=== PATIENT | male | born 1975 | race Caucasian/White ===

== ENCOUNTER 2021-03-25 21:32 | Inpatient (IN) ==
[~2021-03-25 21:32] MED LIST: HEPARIN SOD (PORCINE) 1000 UNIT/ML IV ONE; TICAGRELOR 90 MG TAB PO ONE
[2021-03-25] MEDS ORDERED: TICAGRELOR 90 MG TAB PO ONE (21:33)
[2021-03-25] MEDS ORDERED: HEPARIN (PORCINE) 1000 UNIT/ML 10 ML (CATH LAB USE ONLY) ONE (21:33)
[2021-03-25] MEDS ORDERED: niCARdipine HCL INJ 2.5 MG/ML 10 ML AMP ONE (21:33)
[2021-03-25] MEDS ORDERED: fentaNYL citrate 100 MCG/2 ML VIAL ONE ×2 (21:33→21:56)
[2021-03-25] MEDS ORDERED: NITROGLYCERIN/D5W 100MCG/ML 20ML SYR ONE (21:34)
[2021-03-25] MEDS ORDERED: MIDAZOLAM HCL 1 MG/ML 2ML VIAL ONE ×2 (21:34→21:56)
[2021-03-25] MEDS ORDERED: NITROGLYCERIN SL 0.4 MG/TAB TAB SL STA (21:40)
[2021-03-25] MEDS ORDERED: NITROGLYCERIN SL 0.4 MG/TAB TAB ONE (21:40)
--- NOTE | 2021-03-25 21:46 | Pre Anesthesia Assessment ---
Date of Service March 25, 2021 Pre Sedation Assessment Cardiovascular RRR, no murmur, no edema Respiratory normal respiratory effort, lungs clear to auscultation Pre-Sedation Airway Assessment Smoking Status: Current every day smoker Hx Sleep Apnea: No Hx Difficult Intubation: No Short, Thick Neck: No Thyromental Distance: < 3.5 Finger Breadths Oral Cavity: + WNL Mallampati Class: III ASA: ASA3 Procedure Planning Contraindications for Sedation: none Current Medications Reviewed: Yes Notes The planned sedation has been discussed with the patient. Informed Consent was obtained. I have identified the patient, determined the appropriateness of sedation and have assessed the patient immediately prior to the procedure. All medicine(s) and interventions are by my order.
[2021-03-25 21:48] LABS: Basophils # (auto) 0.02 K/uL (0-0.2); Basophils % (auto) 0.2 %; Hematocrit (blood only) 34.4 % (42-52); Hemoglobin 10.5 g/dL (14.0-18.0); Immature Granulocytes # (auto) 0.04 K/uL (0.00-0.02); Immature Granulocytes % (auto) 0.3 %; Lymphocytes # (auto) 1.45 K/uL (1.2-3.4); Lymphocytes % (auto) 11.7 %; Mean Corpuscular Hemoglobin 22.8 pg (25-34); Mean Corpuscular Hgb Conc 30.5 g/dL (32-36); Mean Corpuscular Volume 74.8 fL (80-100); Monocytes % (auto) 3.2 %; Neutrophils # (auto) 10.48 K/uL (1.4-6.5); Neutrophils % (auto) 84.6 %; Platelet Count 450 K/uL (130-400); RDW Coefficient of Variation 17.8 % (11.5-14.5); RDW Standard Deviation 48.3 fL (36.4-46.3); White Blood Count 12.39 K/uL (4.8-10.8)
--- NOTE | 2021-03-25 21:49 | Emergency Department Note ---
History of Present Illness General Chief complaint: Heart Alert Stated complaint: Heart Alert History of Present Illness 45-year-old male presents to the ED with a chief complaint of retrosternal chest pain. He describes it as a burning pain or like really bad heartburn. Associated nausea and vomiting. He has had it for the past couple of hours. EMS was called and he was transported here for evaluation. EMS shows ST elevation AL in the anterior lateral leads. EMS provided nitroglycerin, aspirin, fentanyl and Zofran as well as some IV fluids. This helped his symptoms a little. He does report history of smoking a pack per day. No early family history of heart disease. Reports only taking sertraline for depression. He was diaphoretic for EMS. Home Medications Medication Instructions Recorded Confirmed Type albuterol 90 mcg/actuation aerosol 90 mcg INHALATION DAILY 03/25/21 03/25/21 History inhaler multivitamin 2 tab PO DAILY 03/25/21 03/25/21 History sertraline 25 mg tablet 25 mg PO DAILY 03/25/21 03/25/21 History Allergies Allergy/AdvReac Type Severity Reaction Status Date / Time pollen extracts AdvReac Mild Watery Eye Verified 03/25/21 22:53 Past Med/Surg History Social History Smoking Status: Current every day smoker Cigarettes Per Day: 10; Do You Dip or Chew Tobacco: No; Hx Alcohol Use: Yes Alcohol type: beer Hx Substance Use: No Preferred Language: [place] Communication Ability: Effective Sorter Operator Required: No Beliefs That Will Affect Care: None Current Living Situation: Spouse Other Information That Helps Us Care for You: No Feels Safe at Home: Yes Safety Concerns: Feels Safe At This Time Assistive Devices: None Review of Systems A total of 10 systems reviewed and were otherwise negative Physical Exam Vital Signs Vital Signs - 24 hr 03/25/21 21:35 03/25/21 21:44 03/25/21 22:27 Temperature 36.9 C 36.8 C Temperature Source Oral Oral Pulse Rate 92 H Pulse Rate [Apical] 109 H Pulse Rhythm [Apical] Regular Pulse Strength [Apical] Normal Respiratory Rate 18 20 Respiratory Effort / Characteristics Non-Labored Spontaneous Respiratory Depth Normal Respiratory Pattern Regular Blood Pressure 161/116 H Blood Pressure [Left Arm] 123/105 H Blood Pressure Mean 131 Blood Pressure Mean [Left Arm] 111 Blood Pressure Position Lying Blood Pressure Position [Left Arm] Lying Pulse Oximetry 98 95 Oxygen Delivery Method Room Air Room Air Room Air Sepsis Recent Fever Within 48 Hours No Sepsis New/Unexplained Change in Mental Status No Sepsis Action Taken by Nursing No Action Required CONSTITUTIONAL/VITAL SIGNS: Reviewed / noted above. GENERAL: Non-toxic in appearance. INTEGUMENTARY: Warm, dry, and [place]. HEAD: Normocephalic. EYES: without scleral icterus or trauma. ENT/OROPHARYNX: clear and moist. LYMPHADENOPATHY/NECK: Is supple without lymphadenopathy or meningismus. RESPIRATORY: Clear to auscultation bilaterally. No increased work of breathing. CARDIOVASCULAR: Regular rate and rhythm. GI/ABDOMEN: Soft and nontender. No organomegaly or pulsatile mass. EXTREMITIES: Warm and well perfused. BACK: No CVA tenderness. NEUROLOGICAL: Intact without focal deficits. PSYCHIATRIC: normal affect. MUSCULOSKELETAL: Normally developed with good muscle tone. TRIAGE NURSING DOCUMENTATION REVIEWED. Course Administered Medications Discontinued Medications Fentanyl Citrate (Fentanyl Citrate 100 Mcg/2 Ml Vial) Confirm Administered Dose 100 mcg .ROUTE .[facility] ONE Stop: 03/25/21 21:34 Last Admin: 03/25/21 22:10 Dose: 100 mcg Documented by: [id number] Fentanyl Citrate (Fentanyl Citrate 100 Mcg/2 Ml Vial) Confirm Administered Dose 100 mcg .ROUTE .[facility] ONE Stop: 03/25/21 21:57 Last Admin: 03/25/21 22:11 Dose: 50 mcg Documented by: [id number] Heparin Sodium (Porcine) (Heparin Sod (Porcine) 1000 Unit/Ml) 5,000 units IV NOW ONE Stop: 03/25/21 21:31 Last Admin: 03/25/21 22:10 Dose: 5,000 units Documented by: [id number] Cosigned by: [id number] Heparin Sodium (Porcine) (Heparin (Porcine) 1000 Unit/Ml 10 Ml (Needle Grader Use Only)) Confirm Administered Dose 10,000 units .ROUTE .[facility] ONE Stop: 03/25/21 21:34 Last Admin: 03/25/21 22:10 Dose: 5,000 units Documented by: [id number] Heparin Sodium/Sodium Chloride (Heparin In Nss Infusion 1000 Unit/500 Ml (2 U/Ml) Bag) Confirm Administered Dose 3,000 units IV .[facility] ONE Stop: 03/25/21 21:35 Last Admin: 03/25/21 22:11 Dose: 3,000 units Documented by: [id number] Midazolam HCl (Midazolam Hcl 1 Mg/Ml 2ml Vial) Confirm Administered Dose 2 mg .ROUTE .[facility] ONE Stop: 03/25/21 21:35 Last Admin: 03/25/21 22:11 Dose: 2 mg Documented by: [id number] Midazolam HCl (Midazolam Hcl 1 Mg/Ml 2ml Vial) Confirm Administered Dose 2 mg .ROUTE .[facility] ONE Stop: 03/25/21 21:57 Last Admin: 03/25/21 22:12 Dose: 2 mg Documented by: [id number] Nicardipine HCl (Nicardipine Hcl Inj 2.5 Mg/Ml 10 Ml Amp) Confirm Administered Dose 25 mg .ROUTE .[facility]-MED ONE Stop: 03/25/21 21:34 Last Admin: 03/25/21 22:11 Dose: 25 mg Documented by: [id number] Nitroglycerin (Nitroglycerin Sl 0.4 Mg/Tab Tab) 0.4 mg SL NOW STA Stop: 03/25/21 21:41 Last Admin: 03/25/21 21:43 Dose: 0.4 mg Documented by: [id number] Nitroglycerin (Nitroglycerin Sl 0.4 Mg/Tab Tab) Confirm Administered Dose 0.4 mg .ROUTE .[facility] ONE Stop: 03/25/21 21:41 Last Admin: 03/25/21 22:13 Dose: 0.4 mg Documented by: [id number] Nitroglycerin/Dextrose (Nitroglycerin/D5w 100mcg/Ml 20ml Syr) Confirm Admini stered Dose 2,000 mcg .ROUTE .[facility]-MED ONE Stop: 03/25/21 21:35 Last Admin: 03/25/21 22:11 Dose: 2,000 mcg Documented by: [id number] Ticagrelor (Ticagrelor 90 Mg Tab) 180 mg PO ONE ONE Stop: 03/25/21 21:31 Last Admin: 03/25/21 22:10 Dose: 180 mg Documented by: [id number] Ticagrelor (Ticagrelor 90 Mg Tab) Confirm Administered Dose 180 mg PO .STK-MED ONE Stop: 03/25/21 21:34 Last Admin: 03/25/21 22:11 Dose: Not Given Documented by: [id number] Critical Care Time I have personally spent 30 minutes of critical care time in the direct management of this patient. This includes bedside care, interpretation of diagnostic studies, and testing, discussion with consultants, patient, and family members, and other required patient management activities. This 30 minutes is in excess of all separately billable procedures. Medical Decision Making Differential Diagnosis Medical decision chest Medical Records Attestation: I reviewed the patient's medical records. Home Medications Current Medication List: was personally reviewed by me Laboratory Data Attestation: I reviewed the patient's lab results. Result diagrams: 03/25/21 21:40 03/25/21 21:40 Lab Results 03/25/21 03/25/21 03/25/21 Range/Units 21:40 21:40 21:40 WBC 12.39 H (4.8-10.8) K/uL RBC 4.60 L (4.7-6.1) M/uL Hgb 10.5 L (14.0-18.0) g/dL Hct 34.4 L (42-52) % MCV 74.8 L (80-100) fL MCH 22.8 L (25-34) pg MCHC 30.5 L (32-36) g/dL RDW Std Deviation 48.3 H (36.4-46.3) fL RDW Coeff of Jesus 17.8 H (11.5-14.5) % Plt Count 450 H (130-400) K/uL MPV 9.0 (7.4-10.4) fL Immature Gran % (Auto) 0.3 % Neut % (Auto) 84.6 % Lymph % (Auto) 11.7 % Miner % (Auto) 3.2 % Eos % (Auto) 0.0 % Baso % (Auto) 0.2 % Neut # (Auto) 10.48 H (1.4-6.5) K/uL Lymph # (Auto) 1.45 (1.2-3.4) K/uL Miner # (Auto) 0.40 (0.11-0.59) K/uL Eos # (Auto) 0.00 (0-0.5) K/uL Baso # (Auto) 0.02 (0-0.2) K/uL Immature Gran # (Auto) 0.04 H (0.00-0.02) K/uL Hypochromasia Present PT Cancelled INR Cancelled APTT Cancelled PTT Ratio Cancelled Activ Coag Time Kaolin (94-140) SECONDS Sodium 138 (136-145) mmol/L Potassium 4.1 (3.5-5.1) mmol/L Chloride 106 (98-107) mmol/L Carbon Dioxide 21 (21-32) mmol/L Anion Gap 10.0 (3-11) BUN 18 (7-18) mg/dl Creatinine 1.22 (0.6-1.4) mg/dl Est Cr Clr Drug Dosing 90.6 ml/min Est GFR ( Amer) 83.1 ml/min Est GFR (Non-Af Amer) 71.7 ml/min BUN/Creatinine Ratio 14.5 (10-20) Glucose 179 H (70-99) mg/dl Calcium 8.9 (8.5-10.1) mg/dl Total Bilirubin 0.3 (0.2-1) mg/dl AST 12 L (15-37) U/L ALT 20 (12-78) U/L Alkaline Phosphatase 84 (45-117) U/L Troponin I 0.072 H* (0-0.045) ng/ml Total Protein 7.5 (6.4-8.2) gm/dl Albumin 3.7 (3.4-5.0) gm/dl Globulin 3.8 (2.5-4.0) gm/dl Albumin/Globulin Ratio 1.0 (0.9-2) Lipase 169 (73-393) U/L COVID-19 Eval Order SARS-CoV-2 (PCR) (Negative) 03/25/21 03/25/21 03/25/21 Range/Units 21:42 21:42 22:09 WBC (4.8-10.8) K/uL RBC (4.7-6.1) M/uL Hgb (14.0-18.0) g/dL Hct (42-52) % MCV (80-100) fL MCH (25-34) pg MCHC (32-36) g/dL RDW Std Deviation (36.4-46.3) fL RDW Coeff of Jesus (11.5-14.5) % Plt Count (130-400) K/uL MPV (7.4-10.4) fL Immature Gran % (Auto) % Neut % (Auto) % Lymph % (Auto) % Miner % (Auto) % Eos % (Auto) % Baso % (Auto) % Neut # (Auto) (1.4-6.5) K/uL Lymph # (Auto) (1.2-3.4) K/uL Miner # (Auto) (0.11-0.59) K/uL Eos # (Auto) (0-0.5) K/uL Baso # (Auto) (0-0.2) K/uL Immature Gran # (Auto) (0.00-0.02) K/uL Hypochromasia PT INR APTT PTT Ratio Activ Coag Time Kaolin 224 H (94-140) SECONDS Sodium (136-145) mmol/L Potassium (3.5-5.1) mmol/L Chloride (98-107) mmol/L Carbon Dioxide (21-32) mmol/L Anion Gap (3-11) BUN (7-18) mg/dl Creatinine (0.6-1.4) mg/dl Est Cr Clr Drug Dosing ml/min Est GFR ( Amer) ml/min Est GFR (Non-Af Amer) ml/min BUN/Creatinine Ratio (10-20) Glucose (70-99) mg/dl Calcium (8.5-10.1) mg/dl Total Bilirubin (0.2-1) mg/dl AST (15-37) U/L ALT (12-78) U/L Alkaline Phosphatase (45-117) U/L Troponin I (0-0.045) ng/ml Total Protein (6.4-8.2) gm/dl Albumin (3.4-5.0) gm/dl Globulin (2.5-4.0) gm/dl Albumin/Globulin Ratio (0.9-2) Lipase (73-393) U/L COVID-19 Eval Order Covid19 at [facility] SARS-CoV-2 (PCR) NEGATIVE (Negative) ECG Data Attestation: I personally reviewed and interpreted this ECG as follows: Additional Comments: Twelve-lead EKG: Per my interpretation there is a sinus rhythm with a normal rate. ST elevations are noted in the anterolateral leads. This is consistent with acute AL. No PVCs. Normal QTC. MDM Narrative Patient presents with 2 hours of chest pain that he describes as a burning heartburn-like sensation associated with nausea and vomiting. EKG shows acute anterolateral wall AL. Heart alert was called prior to the patient arriving to the emergency department. EMS provided aspirin p.o., nitroglycerin sublingual, IV fentanyl and IV Zofran as well as some IV fluids. He was given IV heparin 5000 units as well as p.o. Brilinta 180 mg here as well as an additional sublingual nitro. He was taken to the cardiac Needle Grader by Dr. Medellin for intervention. Impression & Plan Acute anterolateral wall AL Discharge Plan Visit Data Chief Complaint: Heart Alert Stated Complaint: Heart Alert ED Provider: [facility] Discharge Problem: Acute anterolateral wall AL Patient Disposition: Admitted As Inpatient Discharge Instructions Interventions: ED Discharge Assessment Last Done: 03/25/21 21:44
--- NOTE | 2021-03-25 21:50 | Cardiology Consultation ---
Date of Consultation March 25, 2021 Assessment & Plan (1) Acute anterolateral wall TN: Presentation consistent with anterior STEMI and recommend proceeding with emergent cardiac catheterization and likely primary PCI. No apparent contraindications to procedure. Discussed risks, benefits, alternatives of procedure with patient and they are willing to proceed. Given IV heparin and ticagrelor 180 mg in the ED. Further recommendations pending findings of coronary angiography. History of Present Illness History of Present Illness 45-year-old man here with acute chest pain and ECG concerning for acute TN. Pat ient seen emergently in the ED after heart alert activated by EMS en route. No prior cardiac history. Cardiac risk factors include ongoing tobacco use. Other medical issues include PTSD/anxiety. Chest pain began approximately 2 hours prior to arrival. Describes substernal pain with associated nausea, diaphoresis. Denies similar symptoms in the past. Given nitroglycerin, aspirin, fentanyl in route. Chest pain at time of arrival 03/12. Hemodynamically stable. EKG showed anterior ST elevations. 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 . Ongoing tobacco Patient History Social History Smoking Status: Current every day smoker Feels Safe at Home: Yes Review of Systems Review of Systems: Not obtained in setting of emergent situation Physical Exam Physical Exam: General: Uncomfortable, shaking HEENT: Sclerae anicteric Lungs: Clear to auscultation bilaterally Cardiac: Tachycardic, regular Vascular: 2+ radial Abdomen: Soft, nontender Extremities: Well perfused, no peripheral edema Neuro: Nonfocal Psych: Alert orient x3, normal affect and mood PG Care Time/CCT Total # of Minutes Spent Total Time Spent with Patient: Total time spent is greater than 50% in coordination of care (as documented) at patient's floor/unit and/or counseling patient: Coding Level of Care Code 23155 Inpt Consult Level 5 Diagnoses Acute anterolateral wall TN I21.09
[2021-03-25 22:13] LABS: Albumin Level 3.7 gm/dl (3.4-5.0); BUN Creatinine Ratio 14.5 (10-20); Calcium 8.9 mg/dl (8.5-10.1); Creatinine Clr Calc Pharmacy 90.6 ml/min; Est GFR (African American) 83.1 ml/min; Est GFR (Non-African American) 71.7 ml/min; Potassium 4.1 mmol/L (3.5-5.1)
[2021-03-25 22:20] LABS: Hypochromasia Present
[2021-03-25 22:27] LABS: Bilirubin,Total 0.3 mg/dl (0.2-1); Globulin 3.8 gm/dl (2.5-4.0); Total Protein 7.5 gm/dl (6.4-8.2); Troponin I 0.072 ng/ml (0-0.045)
[2021-03-25] MEDS ORDERED: ACETAMINOPHEN 325 MG TAB PO PRN (22:27)
[2021-03-25] MEDS ORDERED: ONDANSETRON INJ 2 MG/ML 2 ML VIAL IV PRN (22:27)
[2021-03-25] MEDS ORDERED: SODIUM CHLORIDE 0.9% 500 ML IV SCH (22:30)
[2021-03-25] MEDS ORDERED: ICU PROTOCOL FOR HYPERGLYCEMIA PRN (22:32)
--- NOTE | 2021-03-25 22:40 | Post Anesthesia Assessment ---
Date of Service March 25, 2021 Post Sedation Assessment Vital Signs Temp Pulse Resp BP Pulse Ox 03/25/21 21:35 98.4 F 92 H 18 161/116 H 98 Recovery Score Activity: Moves 4 extremities Respiration: Deep Breath/Cough Circulation: +/-20% PreAnes Value Consciousness: Fully Awake Oxygen Saturation: O2 needed for >90% Discharge Sedation Level of Care: Fast Track Phase II Post Sedation Plan On clinical assessment, the patient appears to have tolerated the sedation without complications. Patient is recovering as anticipated. Patient will continue to be monitored by nursing and may be discharged when sedation discharge criteria are met per below protocol. Upon Completions of procedure up to 15 minutes continue every 5 minute vital signs and the P.A.R. score; then discharge to a Phase I or Fast Track to Phase II per the following guidelines: * Discharge Patient to appropriate Phase II area if PAR is 8 or greater or return to pre- procedure baseline. The post - procedure orders will be as directed. * If PAR score is less than 8 or not return to pre-procedure baseline then patient will follow Phase I monitoring till PAR is reached for Phase II. The Phase I may be done in procedure room or may call to secure a Phase I area. * If naloxone or flumazenil are used for reversal, hold in Phase I for continued monitoring from when last reversal dose was given for a minimum of 60 minutes or longer pending the nurse and/or physician discretion of patient condition before discharge to Phase II. Please call the Sedation Physician to re-evaluate and complete post-note for discharge to Phase II area. Do NOT discharge from procedure sedation or Phase 1 until post- sedation evaluation note is complete by procedure /sedation MD Sedation Discharge Instructions to be given to the patient at discharge to home.
--- NOTE | 2021-03-25 22:48 | Cardiac Catheterization ---
[facility] Data: Outer Diameter Technician Cardiac Status Clinical evaluation leading to the procedure CAD Presenation: STEMI Anginal Classification: CCS IV Heart Failure: No Cardiogenic Shock within 24 Hours: No Cardiac Arrest within 24 Hours: No Imaging Studies Past 6 Months: No Stress Studies Past 6 Months: No Diagnostic Physicians Name: Monster Medellin MD Status: Emergency Closure Device Percutaneous Entry Location: Radial Closure Device: Radial Band Recommendations: PCI without planned CABG PCI Indication: Immediate PCI for STEMI Lesion Segment Name: Mid LAD Culprit Artery: Yes Stenosis Prior to Rx (%): 100 Chronic Total Occlusion: No FFR: No Pre-Procedure AVERY Flow: 0 Previously Treated Lesion: No Lesion Complexity: Non-High/Non-C Lesion Length (mm): 15 Thrombus Present: Yes Bifurcation Lesion: No Guidewire Across Lesion: Stenosis Post-Procedure (%): 0 Post-Procedure AVERY Flow: 3 Devices(s) Deployed: Yes Yes Intraprocedure Events Significant Disection: No Perforation: No Cardiac Cath Procedure Full Procedure Date March 25, 2021 Pre-Procedure Diagnosis Pre-Procedure Diagnosis: STEMI AUC Score AUC Score: 9 Post-Procedure Diagnosis Post-Procedure Diagnosis: Severe CAD, Successful PCI and Elevated Intracardiac Pressures Procedure(s) Performed Procedure(s) Performed: Coronary Angiography, Left Heart Cath and Drug Eluting Stent Storage Engineer Monster Medellin MD Respiratory Therapy Technician(s) [place] Estimated Blood Loss Estimated Blood Loss: 10 Medication(s) Medication(s): Fentanyl, Heparin, Lidocaine 1%, Nicardipine, Nitroglycerin and Versed Medication(s): Ticagrelor Summary of Findings Indication: STEMI/Heart Alert Access: 6 Fr right radial artery Catheters: EBU 3.5 guide, JR4 Findings: LM -normal caliber, angiographically normal LAD -medium caliber, proximal luminal irregularities, 100% acute occlusion after takeoff of first diagonal/first septal. Circumflex -medium caliber, no significant disease RCA -dominant, large caliber, no significant disease LVEDP -20 -- PCI -- Antithrombotic therapy: Heparin, ticagrelor Procedure: Left main cannulated with EBU 3.5 guide BMW wire passed across lesion into distal vessel Mid LAD lesion predilated with 2.5 compliant balloon Dilated lesion stented with 3.0 x 18 mm Xience drug-eluting stent Stent post-dilated with 3.5 noncompliant balloon IC vasodilators administered for spasm Post procedure AVERY 3 flow, stent well expanded with minimal residual stenosis and no apparent cardiac complications. Arterial Closure: TR band Summary: 1. Anterior STEMI/acute 100% mid LAD occlusion 2. No significant nonculprit coronary artery disease 3. Mildly elevated intracardiac filling pressure 4. Successful PCI of mid LAD occlusion with single drug-eluting stent (3.0 x 18 mm Xience; postdilated with 3.5 NC). Recommendations: Admit to ICU for continued monitoring Loaded with ticagrelor 180 mg Continue dual-antiplatelet therapy for at least 1 year. Trend troponins until peak, Check Echo Uptitrate beta-larisa/VIRY as BP allows High-dose statin Consult cardiac Rehab Hemodynamics Rest Ao:: 122/86/107 Final Ao: 123/85/114 LV: 130/20 Recommendations Recommendations: PCI without planned CABG Specimens Specimens: None Radiation Exposure (mGy) 1185 Contrast (mls) 75 Fluids (cc crystalloids) Fluids (cc crystalloids): 60 Drains Drains: None Anesthesia Moderate [id number] Procedural Complication(s) None Disposition ICU I attest to the content of the Intraoperative Record and any orders documented therein. Any exceptions are noted below. [facility] Card Cath Procedure Codes Cardiac Catheterization Procedure 1: Cardiovascular Cath Procedures: 31723 Coronaries and LHC (+/-LV) Moderate Sedation Procedure 1: Sedation/Anesthesia: 78520 Mod Sedation by the same physician;Init15 Min Child Age 5 & Up Stenting Procedure 1: Cardiovascular Stent Procedures: 09031 Perc transluminal revascularization of acute sub/total occl, aMI PG Care Time/CCT Total # of Minutes Spent Total Time Spent with Patient: Total time spent is greater than 50% in coordination of care (as documented) at patient's floor/unit and/or counseling patient:
--- NOTE | 2021-03-25 23:14 | Critical Care Consultation ---
Date of Consultation March 25, 2021 Assessment & Plan (1) Admitted to intensive care unit: Reason Critically Ill: 45-year-old male with acute anterior ST CHANTEL he was status post PTCI with SUZE x1 to the LAD requiring close hemodynamic monitoring status post coronary intervention. NEURO - * CAM ICU: NEGATIVE * Depression: * Continue home sertraline CARDIAC/VASCULAR - * Acute anterior STEMI s/p PTCI w/ SUZE x1 to the mid LAD: * AM Echo * Trend Troponin * ASCVD Rx per typical * Continue per cariology recommendations. * Monitor on telemetry. RESPIRATORY - * Encourage smoking cessation GI/NUTRITION - * AHA diet RENAL/LYTES - * No significant electrolyte derangements. - * No concerns at this time. ENDO - * No h/o DM or Thyroid Dz * BSGs per unit protocol. ISS --> gtt per unit policy. HEME - * Stable H&H * Monitor for s/s bleeding s/p Heparin/Brilinta. ID - * No concerns for infection LINES/IV ACCESS - * PIVs x2 DVT PROPHYLAXIS - * Hold s/p Heparin/Brilinta. Hopeful for early ambulation. * SCDs Thank you for allowing us to participate in the care of this patient. Please refer to my attending physician's documentation for any further recommendations. (2) Acute anterolateral wall SD: (3) S/P PTCA (percutaneous transluminal coronary angioplasty): (4) S/P drug eluting coronary stent placement: History of Present Illness Attending Physician: Amanda Akins DO History of Present Illness Patient is a 45-year-old man with a past medical history of depression alone who presented to the emergency department as a code heart alert after an abrupt onset of chest pain watching TV. He reports that he initially felt the sensation of pain to the RIGHT trapezius muscle which she reports he has been having injections placed recently for a work-related injury. He then had an abrupt onset of nausea and vomiting followed by intense heartburn type sensation which she reports was more intense than he never experienced in the past. He rated his pain a 10 out of 10 at that point. He contacted EMS given his intense discomfort. The patient was noted to have anterior ST segment elevations. The patient received nitroglycerin x2, fentanyl, and full dose aspirin prior to arrival. Patient was taken to the catheterization suite where he underwent PTCI with successful SUZE placement to the mid LAD which was 100% occluded. Patient reports being completely pain-free after intervention. Upon evaluation in the ICU, the patient is awake, alert, and oriented. He denies any pain at this time rating his discomfort is 0/10. Patient reports no family history of coronary artery disease, or particularly coronary artery disease in young individuals. The patient with smoking approximately 1 pack of cigarettes per day. He denies any previous history of intermittent chest pain. Patient denies any current complaints of headaches, dizziness, lightheadedness, blurred vision, double vision, chest pain, palpitations, pleuritic pain, nausea, vomiting, or abdominal discomfort. Allergies Allergy/AdvReac Type Severity Reaction Status Date / Time pollen extracts AdvReac Mild Watery Eye Verified 03/25/21 22:53 Home Medications Medication Instructions Recorded Confirmed Type albuterol 90 mcg/actuation aerosol 90 mcg INHALATION DAILY 03/25/21 03/25/21 History inhaler multivitamin 2 tab PO DAILY 03/25/21 03/25/21 History sertraline 25 mg tablet 25 mg PO DAILY 03/25/21 03/25/21 History Patient History Medical History Depression Social History Smoking Status: Current every day smoker Cigarettes Per Day: 10; Do You Dip or Chew Tobacco: No; Hx Alcohol Use: Yes Alcohol type: beer Hx Substance Use: No Preferred Language: Georgian Communication Ability: Effective [place] Required: No Beliefs That Will Affect Care: None Current Living Situation: Spouse Other Information That Helps Us Care for You: No Feels Safe at Home: Yes Safety Concerns: Feels Safe At This Time Assistive Devices: None Review of Systems Review of Systems: A complete 10 point review of systems was reviewed with the patient with pertinent positives and negatives as per history of present illness. All else were negative. Physical Exam Physical Exam: VITAL SIGNS - Vital signs and nursing notes were reviewed. GENERAL - 45-year-old male appearing his stated age who is in no acute distress. Communicates well with provider and answers questions appropriately. HEAD - NC/AT. EYES - PERRL with EOMI bilaterally. Sclera anicteric. EARS - No deformities of external structures noted on gross examination bilaterally. NOSE - Midline and without cyanosis. No epistaxis or purulent drainage noted. MOUTH/OROPHARYNX - Without perioral cyanosis. Buccal mucosa pink and moist and without leukoplakia. NECK - Neck with FROM. LUNGS - Chest wall symmetric without accessory muscle use, intercostals retractions, or central cyanosis. Normal vesicular breath sounds CTA B/L. No wheezes, rales, or rhonchi appreciated. CARDIAC - RRR with S1/S2. No murmur, rubs, or gallops appreciated. No reproducible tenderness to palpation appreciated over the anterior chest wall. ABDOMEN - Abdominal contour flat without pulsations or visible masses. BS normoactive all four quadrants. No tenderness, palpable masses, hepatosplenomegaly, or ascites noted. EXTREMITIES - No clubbing or peripheral cyanosis. No pretibial edema present. +3/5 radial and dorsalis pedis pulses palpated throughout. +5/5 strength noted in UE/LE bilaterally. NEUROLOGIC - Cranial nerves II through XII grossly intact. Sensory intact to light touch throughout. PSYCH - A&Ox3 and cooperates fully with examiner. Pt is very pleasant and interacts well with examiner. Results & Data Results & Data ([facility]) Vital Signs (Past 12 Hours) Vital Signs Temp Pulse Pulse Resp BP BP Pulse Ox 03/25/21 22:57 106 H 18 131/87 97 03/25/21 22:42 96 H 22 121/82 95 03/25/21 22:37 36.4 C L 111 H 18 123/105 H 96 03/25/21 22:27 36.8 C 109 H 20 123/105 H 95 03/25/21 21:35 36.9 C 92 H 18 161/116 H 98 Coding Level of Care Code 93752 Office/OBS Consult Lvl 4 Diagnoses Admitted to intensive care unit Z78.9 Acute anterolateral wall SD I21.09 S/P PTCA (percutaneous transluminal coronary angioplasty) Z98.61 S/P drug eluting coronary stent placement Z95.5 Time Spent (min) 35
--- NOTE | 2021-03-25 23:20 | History & Physical Report ---
Date of Service March 25, 2021 Assessment & Plan (1) Acute anterolateral wall NC: Plan: 45yo male presenting with acute chest pain found to have 100% occlusion of LAD s/p SUZE x 1. 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 He is presently doing well. No complaints. Chest pain has resolved. Risk factors include - tobacco use. -Admit to MICU post-catheterization -Check lipid panel and HgbAIC for risk stratification -Smoking cessation counseling -Continue DAPT with ASA and Brillinta -Metoprolol 25mg po BID - titrate as tolerated -Lisinopril 5mg po qAM - titrate as tolerated -Atorvastatin 80mg po qAM -Trend troponin q 8 hours x 3 sets -Check 2D echo in AM (2) Depression: Plan: Chronic -Continue Sertraline Plan: F/E/N - Heplock. Electrolytes WNL. Heart healthy diet as tolerated Ppx - DAPT Code - Full per discussion with patient Dispo - Admit to MICU Admission and Anticipated Discharge Date Admission Date: March 25, 2021 History of Present Illness Chief Complaint: Chest pain Primary Care Provider: NO PCP Iker Champion is a pleasant 45yo male presenting with anterior STEMI. Patient was at home this evening in his usual state of health. He was watching television when he developed right sided chest pain at 19:45 as well as heart burn, nausea with one episode of non-bloody/non-bilious vomiting and diaphoresis. Pain was severe, 8/10. No history of prior. EMS was called and Code Heart was activated. Patient was given ASA 324mg, Nitro SL x 3, NSS x 550mL, Fentanyl 100mcg and Zofran 4mg en route. Patient hemodynamically stable on arrival. EKG with ST elevations present in anterior leads. Patient was taken to the boat laborer upon arrival and found to have 100% occlusion of LAD. He had one SUZE placed. He received Heparin and Brillinta during the procedure. No complications. Patient tolerated procedure well. Presently with no complaints. He denies chest pain, palpitations, SOB, nausea. No additional complaints at this time. Patient resting comfortably. Allergies Allergy/AdvReac Type Severity Reaction Status Date / Time pollen extracts AdvReac Mild Watery Eye Verified 03/25/21 22:53 Home Medications Medication Instructions Recorded Confirmed Type albuterol 90 mcg/actuation aerosol 90 mcg INHALATION DAILY 03/25/21 03/25/21 History inhaler multivitamin 2 tab PO DAILY 03/25/21 03/25/21 History sertraline 25 mg tablet 25 mg PO DAILY 03/25/21 03/25/21 History Past Med/Surg History Medical History (Updated 03/26/21 @ 01:49 by Amanda Akins DO) Depression Social History Smoking Status: Current every day smoker Cigarettes Per Day: 10; Do You Dip or Chew Tobacco: No; Hx Alcohol Use: Yes Alcohol type: beer Hx Substance Use: No Preferred Language: Swedish Communication Ability: Effective Cna Pct Required: No Beliefs That Will Affect Care: None Current Living Situation: Spouse Other Information That Helps Us Care for You: No Feels Safe at Home: Yes Safety Concerns: Feels Safe At This Time Assistive Devices: None Review of Systems Review of Systems: All systems reviewed & are unremarkable except as noted in HPI & below Physical Exam Physical Exam: General: patient resting comfortably, NAD, non-toxic in appearance, AA&O x 4 Skin: warm, dry, intact, no rashes or lesions HEENT: NC/AT, PERRL, EOMI, anicteric sclera, conjunctiva without injection, external ear normal to inspection and nontender, nares patent, moist mucus membranes, dentition intact, no oropharyngeal lesions, neck supple, trachea midline, no LAD, no thyromegaly, no JVD Heart: +S1/S2, regular, no m/r/g Lungs: equal air entry bilaterally, no rales/rhonchi/wheezes Abd: +BS, soft, NT/ND, no masses/organomegaly/ascites Ext: warm, 2+ pulses in UE/LE bilaterally, no clubbing/cyanosis or edema, r adial occlusion band present right wrist Neuro: nonfocal, patient AA&O x 4, speech intact, no facial droop, moving all extremities on command with equal strength 5/5 Results & Data Results & Data ([facility]) Vital Signs (Past 12 Hours) Vital Signs Temp Pulse Pulse Resp BP BP Pulse Ox 03/25/21 23:12 109 H 14 120/87 03/25/21 22:57 106 H 18 131/87 97 03/25/21 22:42 96 H 22 121/82 95 03/25/21 22:37 36.4 C L 111 H 18 123/105 H 96 03/25/21 22:27 36.8 C 109 H 20 123/105 H 95 03/25/21 21:35 36.9 C 92 H 18 161/116 H 98 Laboratory Results Laboratory Results WBC 12.39 K/uL (4.8-10.8) H 03/25/21 21:40 RBC 4.60 M/uL (4.7-6.1) L 03/25/21 21:40 Hgb 10.5 g/dL (14.0-18.0) L 03/25/21 21:40 Hct 34.4 % (42-52) L 03/25/21 21:40 MCV 74.8 fL (80-100) L 03/25/21 21:40 MCH 22.8 pg (25-34) L 03/25/21 21:40 MCHC 30.5 g/dL (32-36) L 03/25/21 21:40 RDW Std Deviation 48.3 fL (36.4-46.3) H 03/25/21 21:40 RDW Coeff of Jesus 17.8 % (11.5-14.5) H 03/25/21 21:40 Plt Count 450 K/uL (130-400) H 03/25/21 21:40 MPV 9.0 fL (7.4-10.4) 03/25/21 21:40 Immature Gran % (Auto) 0.3 % 03/25/21 21:40 Neut % (Auto) 84.6 % 03/25/21 21:40 Lymph % (Auto) 11.7 % 03/25/21 21:40 [place] % (Auto) 3.2 % 03/25/21 21:40 Eos % (Auto) 0.0 % 03/25/21 21:40 Baso % (Auto) 0.2 % 03/25/21 21:40 Neut # (Auto) 10.48 K/uL (1.4-6.5) H 03/25/21 21:40 Lymph # (Auto) 1.45 K/uL (1.2-3.4) 03/25/21 21:40 [place] # (Auto) 0.40 K/uL (0.11-0.59) 03/25/21 21:40 Eos # (Auto) 0.00 K/uL (0-0.5) 03/25/21 21:40 Baso # (Auto) 0.02 K/uL (0-0.2) 03/25/21 21:40 Immature Gran # (Auto) 0.04 K/uL (0.00-0.02) H 03/25/21 21:40 Hypochromasia Present 03/25/21 21:40 PT Cancelled 03/25/21 21:40 INR Cancelled 03/25/21 21:40 APTT Cancelled 03/25/21 21:40 PTT Ratio Cancelled 03/25/21 21:40 Activ Coag Time Kaolin 224 SECONDS (94-140) H 03/25/21 22:09 Sodium 138 mmol/L (136-145) 03/25/21 21:40 Potassium 4.1 mmol/L (3.5-5.1) 03/25/21 21:40 Chloride 106 mmol/L (98-107) 03/25/21 21:40 Carbon Dioxide 21 mmol/L (21-32) 03/25/21 21:40 Anion Gap 10.0 (3-11) 03/25/21 21:40 BUN 18 mg/dl (7-18) 03/25/21 21:40 Creatinine 1.22 mg/dl (0.6-1.4) 03/25/21 21:40 Est Cr Clr Drug Dosing 90.6 ml/min 03/25/21 21:40 Est GFR ( Amer) 83.1 ml/min 03/25/21 21:40 Est GFR (Non-Af Amer) 71.7 ml/min 03/25/21 21:40 BUN/Creatinine Ratio 14.5 (10-20) 03/25/21 21:40 Glucose 179 mg/dl (70-99) H 03/25/21 21:40 Calcium 8.9 mg/dl (8.5-10.1) 03/25/21 21:40 Total Bilirubin 0.3 mg/dl (0.2-1) 03/25/21 21:40 AST 12 U/L (15-37) L 03/25/21 21:40 ALT 20 U/L (12-78) 03/25/21 21:40 Alkaline Phosphatase 84 U/L (45-117) 03/25/21 21:40 Troponin I 0.072 ng/ml (0-0.045) H* 03/25/21 21:40 Total Protein 7.5 gm/dl (6.4-8.2) 03/25/21 21:40 Albumin 3.7 gm/dl (3.4-5.0) 03/25/21 21:40 Globulin 3.8 gm/dl (2.5-4.0) 03/25/21 21:40 Albumin/Globulin Ratio 1.0 (0.9-2) 03/25/21 21:40 Lipase 169 U/L (73-393) 03/25/21 21:40 Nasal Screen MRSA (PCR) Negative (Negative) 03/25/21 23:34 COVID-19 Eval Order Covid19 at [facility] 03/25/21 21:42 SARS-CoV-2 (PCR) NEGATIVE (Negative) 03/25/21 21:42 Code Status & VTE Plan VTE Prophylaxis Plan VTE Prophylaxis will be ordered: Yes Critical Care Time 35 PG Care Time/CCT Total # of Minutes Spent Total Time Spent with Patient: Total time spent is greater than 50% in coordination of care (as documented) at patient's floor/unit and/or counseling patient: Coding Level of Care Code None Diagnoses Acute anterolateral wall NC I21.09 Depression F32.9
[2021-03-26 05:08] LABS: Basophils # (auto) 0.01 K/uL (0-0.2); Basophils % (auto) 0.1 %; Hematocrit (blood only) 35.8 % (42-52); Hemoglobin 10.9 g/dL (14.0-18.0); Immature Granulocytes # (auto) 0.03 K/uL (0.00-0.02); Immature Granulocytes % (auto) 0.2 %; Lymphocytes # (auto) 1.21 K/uL (1.2-3.4); Lymphocytes % (auto) 7.9 %; Mean Corpuscular Hemoglobin 22.9 pg (25-34); Mean Corpuscular Hgb Conc 30.4 g/dL (32-36); Mean Corpuscular Volume 75.2 fL (80-100); Monocytes % (auto) 5.3 %; Neutrophils # (auto) 13.18 K/uL (1.4-6.5); Neutrophils % (auto) 86.5 %; Platelet Count 418 K/uL (130-400); RDW Coefficient of Variation 17.8 % (11.5-14.5); RDW Standard Deviation 48.7 fL (36.4-46.3); Red Blood Count 4.76 M/uL (4.7-6.1); White Blood Count 15.23 K/uL (4.8-10.8)
[2021-03-26 05:54] LABS: BUN Creatinine Ratio 18.2 (10-20); Blood Urea Nitrogen 15 mg/dl (7-18); Calcium 8.8 mg/dl (8.5-10.1); Carbon Dioxide 25 mmol/L (21-32); Chloride 108 mmol/L (98-107); Chol HDL Ratio 6; Cholesterol 216 mg/dl (0-200); Creatinine Clr Calc Pharmacy 131.5 ml/min; Est GFR (African American) 125.3 ml/min; Est GFR (Non-African American) 108.1 ml/min; Glucose 129 mg/dl (70-99); HDL Cholesterol 38 mg/dl; LDL Cholesterol Direct 141 mg/dl; Magnesium 2.3 mg/dl (1.8-2.4); Phosphorus 2.8 mg/dl (2.5-4.9); Potassium 4.3 mmol/L (3.5-5.1); Sodium 139 mmol/L (136-145); Triglycerides 155 mg/dl (0-150); VLDL Cholesterol 31 mg/dl
[2021-03-26 07:28] LABS: Estimated Average Glucose 123 mg/dl; Hemoglobin A1C 5.9 % (4.5-5.6)
--- NOTE | 2021-03-26 08:19 | Critical Care Progress Note ---
Date of Service March 26, 2021 Assessment & Plan Admission and Anticipated Discharge Date Admission Date: March 25, 2021 Results & Data Results & Data ([facility]) Vital Signs (Past 12 Hours) Vital Signs Temp Pulse Pulse Resp BP BP Pulse Ox 03/26/21 05:49 94 H 13 148/74 H 94 03/26/21 04:12 81 16 138/87 97 03/26/21 03:12 82 16 136/92 95 03/26/21 02:12 76 14 127/82 96 03/26/21 01:12 85 18 141/90 H 99 03/26/21 00:12 100 H 22 132/87 98 03/25/21 23:42 96 H 14 143/80 H 98 03/25/21 23:12 109 H 14 120/87 03/25/21 22:57 106 H 18 131/87 97 03/25/21 22:42 96 H 22 121/82 95 03/25/21 22:37 36.4 C L 111 H 18 123/105 H 96 03/25/21 22:27 36.8 C 109 H 20 123/105 H 95 03/25/21 21:35 36.9 C 92 H 18 161/116 H 98
[2021-03-26] MEDS: TICAGRELOR 90 MG TAB PO SCH ×2 (08:46→20:46)
[2021-03-26] MEDS: SERTRALINE HCL 50 MG TABLET PO SCH (08:46)
[2021-03-26] MEDS: lisinopril 5 MG TAB PO SCH (08:46)
[2021-03-26] MEDS: ASPIRIN 81 MG ECTAB PO SCH (08:46)
[2021-03-26] MEDS: ATORVASTATIN 40 MG TAB PO SCH (08:47)
[2021-03-26] MEDS: FAMOTIDINE 40 MG TABLET PO SCH (08:48)
[2021-03-26] MEDS ORDERED: METOPROLOL TARTRATE 25 MG TAB PO SCH (09:00)
--- NOTE | 2021-03-26 11:16 | XCELERA ---
[id number]
[2021-03-26] MEDS ORDERED: CALCIUM CARBONATE 500 MG CHEWABLE TAB PO PRN (11:58)
--- NOTE | 2021-03-26 12:37 | Cardiology Progress Note ---
Date of Service March 26, 2021 Assessment & Plan (1) Acute anterolateral wall KS: Plan: 2. Mild LV dysfunctionEF 45% with apical akinesis 3. Anemiastable 4. Dyslipidemia 5. Tobacco abuse 6. Hypertension Chest pain-free, troponin peaked Hemodynamically and electrically stable. No signs of heart failure on exam. No access site complications. Post procedure labs stable. Continue DAPT with aspirin, ticagrelor Increase metoprolol to 50 mg twice daily Continue current VIRY, statin Transfer to telemetry. Up walking the halls this afternoon. Likely discharge tomorrow a.m. Admission and Anticipated Discharge Date Admission Date: March 25, 2021 Subjective Feeling well this morning. No recurrent chest pain. No other new complaints. Telemetry reviewedno events. Troponin peaked at 77. Echocardiogram shows apical akinesis but overall EF 45 to 50% Review of Systems Review of Systems: All systems reviewed & are unremarkable except as noted in HPI & below Physical Exam Physical Exam: General: Comfortable HEENT: Sclerae anicteric Lungs: few scattered wheezes, otherwise clear Cardiac: Regular rate and rhythm, no murmurs. Vascular: Right radial artery access site with no ecchymosis, hematoma. Distal pulse and sensation intact. Abdomen: Soft, nontender Extremities: Well perfused, no peripheral edema Neuro: Nonfocal Psych: Alert orient x3, normal affect and mood Results & Data ([facility]) Vital Signs (Past 12 Hours) Vital Signs Temp Pulse Pulse Resp BP BP Pulse Ox 03/26/21 11:49 82 19 143/88 H 98 03/26/21 10:49 72 14 133/94 100 03/26/21 09:49 76 12 133/89 97 03/26/21 08:49 74 15 142/94 H 96 03/26/21 08:00 98.4 F 03/26/21 07:49 79 18 138/99 98 03/26/21 06:49 78 13 123/81 97 03/26/21 05:49 94 H 13 148/74 H 94 03/26/21 04:12 81 16 138/87 97 03/26/21 03:12 82 16 136/92 95 03/26/21 02:12 76 14 127/82 96 03/26/21 01:12 85 18 141/90 H 99 PG Care Time/CCT Total # of Minutes Spent Total Time Spent with Patient: Total time spent is greater than 50% in coordination of care (as documented) at patient's floor/unit and/or counseling patient: Coding Level of Care Code 49753 Subseq Hosp Care Lvl 3 Diagnoses Acute anterolateral wall KS I21.09
[2021-03-26] MEDS ORDERED: METOPROLOL TARTRATE 25 MG TAB PO ONE (12:38)
[2021-03-26] MEDS: METOPROLOL TARTRATE 50 MG TAB PO SCH (20:46)
[2021-03-27 04:43] LABS: Basophils # (auto) 0.03 K/uL (0-0.2); Basophils % (auto) 0.2 %; Eosinophils # (auto) 0.01 K/uL (0-0.5); Eosinophils % (auto) 0.1 %; Hematocrit (blood only) 34.6 % (42-52); Hemoglobin 10.6 g/dL (14.0-18.0); Immature Granulocytes # (auto) 0.04 K/uL (0.00-0.02); Immature Granulocytes % (auto) 0.3 %; Lymphocytes # (auto) 2.41 K/uL (1.2-3.4); Lymphocytes % (auto) 17.7 %; Mean Corpuscular Hemoglobin 22.9 pg (25-34); Mean Corpuscular Hgb Conc 30.6 g/dL (32-36); Mean Corpuscular Volume 74.9 fL (80-100); Mean Platelet Volume 8.9 fL (7.4-10.4); Monocytes # (auto) 1.25 K/uL (0.11-0.59); Monocytes % (auto) 9.2 %; Neutrophils # (auto) 9.88 K/uL (1.4-6.5); Neutrophils % (auto) 72.5 %; Platelet Count 376 K/uL (130-400); RDW Coefficient of Variation 17.9 % (11.5-14.5); RDW Standard Deviation 48.6 fL (36.4-46.3); Red Blood Count 4.62 M/uL (4.7-6.1); White Blood Count 13.62 K/uL (4.8-10.8)
[2021-03-27 05:06] LABS: BUN Creatinine Ratio 19.2 (10-20); Calcium 8.7 mg/dl (8.5-10.1); Creatinine Clr Calc Pharmacy 131.5 ml/min; Est GFR (African American) 125.3 ml/min; Est GFR (Non-African American) 108.1 ml/min; Potassium 4.1 mmol/L (3.5-5.1)
[2021-03-27 05:24] LABS: Hypochromasia Present
[2021-03-27] MEDS: FAMOTIDINE 40 MG TABLET PO SCH (08:06)
[2021-03-27] MEDS: TICAGRELOR 90 MG TAB PO SCH (08:06)
[2021-03-27] MEDS: SERTRALINE HCL 50 MG TABLET PO SCH (08:06)
[2021-03-27] MEDS: ASPIRIN 81 MG ECTAB PO SCH (08:06)
[2021-03-27] MEDS: METOPROLOL TARTRATE 50 MG TAB PO SCH (08:06)
[2021-03-27] MEDS: ATORVASTATIN 40 MG TAB PO SCH (08:07)
[2021-03-27] MEDS: lisinopril 5 MG TAB PO SCH (08:07)
--- NOTE | 2021-03-27 09:09 | Electrocardiogram Report ---
Test Reason : Blood Pressure : / mmHG Vent. Rate : 114 BPM Atrial Rate : 114 BPM P-R Int : 138 ms QRS Dur : 080 ms QT Int : 334 ms P-R-T Axes : 054 058 056 degrees QTc Int : 460 ms Sinus tachycardia Acute anterior infarction Abnormal ECG When compared with ECG of 25-MAR-2021 21:35, (unconfirmed) Serial changes of evolving Anterior infarct Confirmed by Dale Cunningham ([id number]) on 03/27/2021 9:08:54 AM Referred By: REFERRED SELF Confirmed By:Dale Cunningham
--- NOTE | 2021-03-27 16:07 | Electrocardiogram Report ---
Test Reason : Blood Pressure : / mmHG Vent. Rate : 089 BPM Atrial Rate : 089 BPM P-R Int : 138 ms QRS Dur : 088 ms QT Int : 366 ms P-R-T Axes : 074 060 054 degrees QTc Int : 445 ms Normal sinus rhythm with sinus arrhythmia ST elevation consider anterolateral injury or acute infarct ACUTE OR / STEMI Abnormal ECG No previous ECGs available Confirmed by Dale Cunningham ([id number]) on 03/27/2021 4:06:56 PM Referred By: REFERRED SELF Confirmed By:Dale Cunningham
--- NOTE | 2021-04-04 00:47 | Discharge Summary ---
Date of Service April 04, 2021 Admission HPI Per Admitting Provider Iker Champion is a pleasant 45yo male presenting with anterior STEMI. Patient was at home this evening in his usual state of health. He was watching television when he developed right sided chest pain at 19:45 as well as heart burn, nausea with one episode of non-bloody/non-bilious vomiting and diaphoresis. Pain was severe, 8/10. No history of prior. EMS was called and Code Heart was activated. Patient was given ASA 324mg, Nitro SL x 3, NSS x 550mL, Fentanyl 100mcg and Zofran 4mg en route. Patient hemodynamically stable on arrival. EKG with ST elevations present in anterior leads. Patient was taken to the label cutter upon arrival and found to have 100% occlusion of LAD. He had one SUZE placed. He received Heparin and Brillinta during the procedure. No complications. Patient tolerated procedure well. Presently with no complaints. He denies chest pain, palpitations, SOB, nausea. No additional complaints at this time. Patient resting comfortably. Specialty Data Cardiology Cardiac cath/PCI 03/25/2021: Summary: 1. Anterior STEMI/acute 100% mid LAD occlusion 2. No significant nonculprit coronary artery disease 3. Mildly elevated intracardiac filling pressure 4. Successful PCI of mid LAD occlusion with single drug-eluting stent (3.0 x 18 mm Xience; postdilated with 3.5 NC). Echo 03/26/2021: Borderline LVH, LVEF 45 to 50%, akinetic apex Discharge Data Consultations 03/25/21 22:34 Consult Cardiac Rehabilitation Routine 03/25/21 22:35 Consult [employer] Routine Procedures Performed Operation Date: 03/25/21 21:30 Actual Procedures p Drug Eluting Stent SGl Vessel - Matti Medellin MD s Cath, Left with Cors and Vent - Matti Medellin MD s Cineradiography w/Routine Exam - Matti Medellin MD Hospital Course (1) Acute anterolateral wall HI: Patient underwent emergent cardiac catheterization for anterior STEMI. Found to have an occluded mid LAD treated with single drug-eluting stent. Procedure uncomplicated. Postprocedure admitted to ICU. Had no further chest pain. Troponin peaked at 77. Electrically stable on telemetry. Echocardiogram showed EF of 45% with apical akinesis. In hospital labs remarkable for stable hemoglobin of 10.6, LDL of 141, A1c 5.9. Discharge to home on hospital day three on aspirin, ticagrelor. Follow-up with cardiology in 2 weeks. Discharge Instructions Home Medications albuterol 90 mcg/actuation aerosol inhaler 90 mcg INHALATION DAILY 03/25/21 [History Confirmed 03/25/21] multivitamin 2 tab PO DAILY 03/25/21 [History Confirmed 03/25/21] sertraline 25 mg tablet 25 mg PO DAILY 03/25/21 [History Confirmed 03/25/21] aspirin 81 mg tablet,delayed release 81 mg PO QAM #30 tab 03/27/21 [Rx] atorvastatin 80 mg tablet 80 mg PO QAM #30 tab 03/27/21 [Rx] lisinopril 5 mg tablet (Zestril) 5 mg PO QAM #30 tab 03/27/21 [Rx] metoprolol tartrate 50 mg tablet 50 mg PO BID #60 tab 03/27/21 [Rx] ticagrelor 90 mg tablet (Brilinta) 90 mg PO BID #60 tab 03/27/21 [Rx] Coding Level of Care Code D/C DAY MANAGEMENT <30 MINS Diagnoses Acute anterolateral wall HI I21.09
== END 2021-03-27 11:00 | disposition home or self-care (01) | DRG 247 ==
LOC: ED 21:32 → CC 21:44 → SUATTDRO 22:35 → 1E 22:35

== ENCOUNTER 2023-06-25 18:13 | Observation (INO) ==
[2023-06-25] MEDS ORDERED: niCARdipine HCL INJ 2.5 MG/ML 10 ML AMP ONE (18:23)
[2023-06-25] MEDS ORDERED: fentaNYL citrate PF 100 MCG/2 ML VIAL ONE (18:23)
[2023-06-25] MEDS ORDERED: HEPARIN (PORCINE) 1000 UNIT/ML 10 ML (CATH LAB USE ONLY) ONE (18:23)
[2023-06-25] MEDS ORDERED: MIDAZOLAM HCL 1 MG/ML 2ML VIAL ONE (18:23)
[2023-06-25] MEDS ORDERED: NITROGLYCERIN/D5W 100MCG/ML 20ML SYR ONE (18:24)
[2023-06-25] MEDS ORDERED: IODIXANOL (VISIPAQUE) 320 MG/ML 100ML IV ONE (18:24)
--- NOTE | 2023-06-25 18:26 | Emergency Department Note ---
Impression & Plan Chest pain, Abnormal EKG ED Provider Note NAME: ELIZ LORA AGE: 48 SEX: M : 1975 ARRIVES VIA: Ambulance INFORMANT: Patient, EMS personnel ED PROVIDER(S): Kwan Nazario DO CHIEF COMPLAINT: Chest pain HPI: The patient is a 48-year-old male who presented to the emergency department by ambulance for an evaluation of chest pain. The patient describes anterior chest pain which is in his back as well. He denies having any difficulty breathing. He denies having abdominal pain. He states the pain began approximately 4:30 PM today. He has a history of coronary artery disease and feels that this is similar. I did receive a prehospital notification. The patient received aspirin morphine Zofran and normal saline solution prior to arrival. He states the pain is significantly improved. He denies having any fever or cough. He does not use tobacco products anymore. He has a history of a stent 2 years ago and states this pain is similar. ROS: See above HPI for pertinent positives & negatives. A total of 10 systems reviewed and were otherwise negative. PAST MEDICAL HISTORY: See Below PAST SURGICAL HISTORY: See Below FAMILY HISTORY: See Below SOCIAL HISTORY: See Below HOME MEDICATIONS: See Below ALLERGIES: See Below VITALS: See Below PHYSICAL EXAMINATION: GENERAL: Patient is awake alert in no acute distress patient is resting comfortably and showing no signs of anxiety EYES: The conjunctivae are clear. The pupils are round and reactive. EARS, NOSE, MOUTH AND THROAT: The nose is without any evidence of any deformity. NECK: The neck is nontender and supple. RESPIRATORY: Normal respiratory effort is noted there is no evidence of wheezing rhonchi or rales CARDIOVASCULAR: Regular rate and rhythm noted there no murmurs rubs or gallops normal S1 normal S2. GASTROINTESTINAL: The abdomen is soft. Abdomen is nontender. MUSCULOSKELETAL/EXTREMITIES: There is no evidence of gross deformity full range of motion is noted in the hips and shoulders. SKIN: There is no obvious evidence of any rash. There are no petechiae, pallor or cyanosis noted. NEUROLOGIC: Patient is awake alert and oriented x3 MEDICAL DECISION MAKING: The patient is a 48-year-old male who presented to the emergency department by ambulance. The patient was made a heart alert prior to arrival due to an abnormal EKG which appeared to be consistent with a posterior wall ID. We were unable to receive the twelve-lead EKG. The patient was made a heart alert prior to arrival. The patient's initial EKG in the emergency department appeared to show improvement of the ST segment abnormalities noted by the prehospital personnel. The patient was treated with aspirin therapy as well as morphine and Zofran prior to arrival. He was evaluated by the section plotter operator in the emergency department. The patient's presentation did appear to be consistent with chest pain from a cardiac source. For this reason the patient was felt to be a good candidate for cardiac catheterization. I discussed patient's condition with the on-call [facility]. They have agreed to evaluate the patient after cardiac catheterization. Triage Nursing notes reviewed. Prior medical records reviewed Vital Signs: reviewed and remarkable for elevated blood pressure and tachycardia. Differential diagnosis: Cardiac ischemia, aortic dissection, pulmonary embolism, pneumothorax, pneumonia, pericarditis, myocarditis, esophageal rupture, GERD, cholecystitis, pancreatitis, musculoskeletal, as well as other pathologies. ER treatment provided: See below Diagnostics interpreted by me: ECG: EKG was obtained in the emergency department. My interpretation is normal sinus rhythm at 98 bpm. There is no ectopy. There was no acute ST segment abnormalities noted. This was compared to a tracing from March 25, 2021. On the previous tracing there was low lateral ST abnormalities which have since resolved. A prehospital EKG was reviewed. My interpretation is sinus tachycardia at 129 bpm. There is no ectopy. ST depressions were noted in the apical and low lateral leads. These changes have since resolved compared to the tracing that the patient received on arrival Cardiac Monitoring: An order was placed for continuous cardiac monitoring. The monitor shows a rate of 108 bpm with sinus tachycardia. Laboratory studies: As stated above and show below. Imaging studies: See below. Radiographic imaging was reviewed by myself Consultation(s): I discussed this case with Dr. Medellin who evaluated the patient in the emergency department. He was on for interventional cardiology. I discussed this case with Dr. Jordan who is on-call for the [facility] group. ED COURSE: Procedures: none Critical Care: I have personally spent greater than 35 minutes of critical care time in the direct management of this patient. This includes bedside care, interpretation of diagnostic studies, and testing, discussion with consultants, patient, and family members, and other required patient management activities. This 35 minutes is in excess of all separately billable procedures. Past Med/Surg History Medical History CAD (coronary artery disease) Acute anterolateral wall ID Depression Surgical History S/P drug eluting coronary stent placement S/P PTCA (percutaneous transluminal coronary angioplasty) Social History Smoking Status: Former smoker Tobacco Type: E-cigarettes / Vaping Cigarettes Per Day: 10; Do You Dip or Chew Tobacco: No; Hx Alcohol Use: Yes Alcohol type: hard liquor Hx Substance Use: No Preferred Language: Albanian Communication Ability: Effective Manager Patient Required: No Beliefs That Will Affect Care: None Current Living Situation: Spouse and Family Other Information That Helps Us Care for You: No Feels Safe at Home: Yes Safety Concerns: Feels Safe At This Time Assistive Devices: Glasses Allergies Allergies Allergy/AdvReac Type Severity Reaction Status Date / Time pollen extracts AdvReac Mild Watery Eye Verified 04/09/21 14:37 No Known Drug Allergies AdvReac Unknown Verified 04/09/21 14:37 Home Meds Home Medications Medication Instructions Recorded Confirmed albuterol 90 mcg/actuation aerosol 90 mcg inhalation DAILY 03/25/21 06/25/23 inhaler multivitamin 2 tab PO DAILY 03/25/21 06/25/23 sertraline 25 mg tablet 25 mg PO DAILY 03/25/21 06/25/23 famotidine 20 mg tablet 20 mg PO DAILY PRN gerd 06/25/23 06/25/23 Previous Rx's Medication Instructions Recorded metoprolol tartrate 50 mg tablet 50 mg PO BID #60 tabs 03/27/21 atorvastatin 80 mg tablet 80 mg PO QAM #30 tabs 12/09/21 lisinopril 5 mg tablet (Zestril) 5 mg PO QAM #30 tabs 12/09/21 aspirin 81 mg tablet,delayed 81 mg PO QAM #30 tabs 04/21/22 release ticagrelor 90 mg tablet (Brilinta) 90 mg PO BID #60 tabs 04/21/22 Results & Data (ED) Vital Signs Vital Signs - 24 hr 06/25/23 18:09 06/25/23 18:15 06/25/23 18:15 Temperature 37.0 C Temperature Source Oral Pulse Rate 108 H Pulse Rate [Apical] Respiratory Rate 16 Respiratory Effort / Characteristics Non-Labored Respiratory Depth Normal Blood Pressure [Left Arm] 171/116 H Blood Pressure Mean [Left Arm] 134 Pulse Oximetry 97 95 Oxygen Delivery Method Room Air Room Air Sepsis Recent Fever Within 48 Hours No Sepsis New/Unexplained Change in Mental Status No Sepsis Action Taken by Nursing No Action Required 06/25/23 18:15 06/25/23 18:21 06/25/23 18:29 Temperature Temperature Source Pulse Rate Pulse Rate [Apical] 104 H Respiratory Rate 20 Respiratory Effort / Characteristics Non-Labored Respiratory Depth Normal Blood Pressure [Left Arm] 169/108 H Blood Pressure Mean [Left Arm] 128 Pulse Oximetry 99 100 96 Oxygen Delivery Method Room Air Room Air Room Air Sepsis Recent Fever Within 48 Hours Sepsis New/Unexplained Change in Mental Status Sepsis Action Taken by Nursing 06/25/23 18:33 06/25/23 18:34 Temperature Temperature Source Pulse Rate 116 H Pulse Rate [Apical] Respiratory Rate Respiratory Effort / Characteristics Respiratory Depth Blood Pressure [Left Arm] Blood Pressure Mean [Left Arm] Pulse Oximetry Oxygen Delivery Method Room Air Sepsis Recent Fever Within 48 Hours Sepsis New/Unexplained Change in Mental Status Sepsis Action Taken by Correction Medications Current Medication List: was personally reviewed by me Laboratory Data Attestation: I reviewed the patient's lab results. 06/25/23 18:25 06/25/23 18:25 Lab Results 06/25/23 06/25/23 Range/Units 18:25 18:28 WBC 8.53 (4.8-10.8) K/ul RBC 4.72 (4.70-6.10) M/uL Hgb 9.0 L (14.0-18.0) g/dl POC Hgb 10.9 L (14.0-18.0) g/dl Hct 32.7 L (42.0-52.0) % POC Hct 32 L (42-52) % MCV 69.3 L (80.0-100.0) fL MCH 19.1 L (25.0-34.0) pg MCHC 27.5 L (32.0-36.0) g/dL RDW Std Deviation 46.7 H (36.4-46.3) fL RDW Coeff of Jesus 19.4 H (11.5-14.5) % Plt Count 307 (130-400) K/uL MPV 9.9 (9.4-12.4) fL Immature Gran % (Auto) 0.2 % Neut % (Auto) 63.7 % Lymph % (Auto) 22.3 % [place] % (Auto) 8.7 % Eos % (Auto) 3.5 % Baso % (Auto) 1.6 % Neut # (Auto) 5.43 (1.40-6.50) K/uL Lymph # (Auto) 1.90 (1.20-3.40) K/uL [place] # (Auto) 0.74 H (0.11-0.59) K/uL Eos # (Auto) 0.30 (0.00-0.50) K/uL Baso # (Auto) 0.14 (0.00-0.20) K/uL Immature Gran # (Auto) 0.02 (0.01-0.20) K/uL Polychromasia 1+ Hypochromasia Present Microcytosis Present Ovalocytes 1+ PT 10.4 (9.0-12.0) Seconds INR 0.9 (0.9-1.1) APTT 22.2 (21.0-31.0) Seconds PTT Ratio 0.8 POC Sodium 137 (135-144) mmol/L Sodium 136 (136-145) mmol/L POC Potassium 3.4 (3.3-5.0) mmol/L Potassium 3.4 L (3.5-5.1) mmol/L POC Chloride 103 (101-112) mmol/L Chloride 103 (98-107) mmol/L Carbon Dioxide 22 (21-32) mmol/L POC Total CO2 21 L (24-31) mmol/L Anion Gap 11 (3-11) POC Anion Gap 17.0 (16-25) mmol/L POC BUN 10 (7-18) mg/dl BUN 11 (6-23) mg/dl Creatinine 0.90 (0.6-1.4) mg/dl POC Creatinine 1.1 (0.6-1.3) mg/dl Est Cr Clr Drug Dosing 122.8 ml/min Est GFR ( Amer) 117.5 ml/min Est GFR (Non-Af Amer) 101.4 ml/min BUN/Creatinine Ratio 12.2 (10-20) Glucose 106 H (70-99(Fasting)) mg/dl POC Glucose (other) 105 H (70-99) mg/dl Calcium 9.4 (8.6-10.3) mg/dl POC Ioniz Calcium Alexx 1.13 (1.12-1.32) mmol/l Iron 18 L (35-175) mcg/dl TIBC 519 H (250-450) mcg/dl Unsaturated IBC 501 H (155-355) mcg/dl Transferrin % Sat 3 L (20-50) % Ferritin 4.3 L (8-388) ng/ml Total Bilirubin 0.4 (0.2-1.0) mg/dl AST 24 (13-39) U/L ALT 17 (7-52) U/L Alkaline Phosphatase 77 (34-104) U/L Troponin I High Sens 13.2 (0-20) pg/ml Total Protein 7.4 (6.0-8.3) gm/dl Albumin 4.3 (3.4-5.0) gm/dl Globulin 3.1 (2.5-4.0) gm/dl Albumin/Globulin Ratio 1.4 (0.9-2) Lipase 34 (11-82) U/L Vitamin B12 138 L (180-914) pg/ml Folate 11.15 (>5.38) ng/ml Administered Medications Sodium Chloride (Nss) 1,000 mls @ 100 mls/hr IV .Q10H ALDO Stop: 06/26/23 00:29 Last Admin: 06/25/23 19:40 Dose: 100 mls/hr Documented By: MANUELITO Famotidine 20 mg/ Syringe 5 mls @ 2.5 mls/min IV BID ALDO Stop: 07/25/23 20:59 Last Admin: 06/25/23 20:40 Dose: 2.5 mls/min Documented By: MANUELITO Metoprolol Tartrate (Metoprolol Tartrate 25 Mg Tab) 25 mg PO BID ALDO Stop: 07/25/23 20:59 Last Admin: 06/25/23 20:40 Dose: 25 mg Documented By: MANUELITO Discontinued Medications Fentanyl Citrate (Fentanyl Citrate Pf 100 Mcg/2 Ml Vial) Confirm Administered Dose 100 mcg .ROUTE .K-MED ONE Stop: 06/25/23 18:24 Last Increment: 06/25/23 19:05 Dose: 50 mcg Documented By: JAH Heparin Sodium (Porcine) (Heparin (Porcine) 1000 Unit/Ml 10 Ml (Paint Prep Technician Use Only)) Confirm Administered Dose 10,000 units .ROUTE .STK-MED ONE Stop: 06/25/23 18:24 Last Admin: 06/25/23 19:06 Dose: 5,000 units Documented By: JAH Heparin Sodium/Sodium Chloride (Heparin In Nss Infusion 1000 Unit/500 Ml (2 U/Ml) Bag) Confirm Administered Dose 3,000 units IV .STK-MED ONE Stop: 06/25/23 18:25 Last Admin: 06/25/23 19:06 Dose: 3,000 units Documented By: ENDER Iodixanol (Iodixanol (Visipaque) 320 Mg/Ml 100ml) Confirm Administered Dose 1 ml IV .STK-MED ONE Stop: 06/25/23 18:25 Last Admin: 06/25/23 19:07 Dose: 30 ml Documented By: JAH Midazolam HCl (Midazolam Hcl 1 Mg/Ml 2ml Vial) Confirm Administered Dose 2 mg .ROUTE .ST-MED ONE Stop: 06/25/23 18:24 Last Increment: 06/25/23 19:06 Dose: 1 mg Documented By: JAH Nicardipine HCl (Nicardipine Hcl Inj 2.5 Mg/Ml 10 Ml Amp) Confirm Administered Dose 25 mg .ROUTE .STK-MED ONE Stop: 06/25/23 18:24 Last Admin: 06/25/23 19:06 Dose: 25 mg Documented By: ENDER Nitroglycerin/Dextrose (Nitroglycerin/D5w 100mcg/Ml 20ml Syr) Confirm Administered Dose 2,000 mcg .ROUTE .ST-MED ONE Stop: 06/25/23 18:25 Last Admin: 06/25/23 19:07 Dose: 2,000 mcg Documented By: JAH Imaging Data Attestation: I personally reviewed and interpreted this imaging study as follows: My Impression: 1 view chest x-ray was obtained in the emergency department. My interpretation is hiatal hernia, no free air or definite infiltrate, final report below. Radiologist's Impression: Chest X-Ray 06/25/23 18:16 XR chest 1V portable CLINICAL HISTORY: Chest pain, nonspecific TECHNIQUE: Single frontal radiograph of the chest was obtained. Comparison: None available at the time of this dictation. FINDINGS: No lines and tubes are seen. The cardiomediastinal silhouette is normal. The lungs are clear. No evidence of pleural effusion or pneumothorax. IMPRESSION: No acute chest disease. ACT 112: Negative or not required by law. Electronically signed by: Rip Rivas M.D. 06/25/2023 6:27 PM Discharge Plan Visit Data Chief Complaint: Heart Alert ED Provider: Kwan Nazario Discharge Problem: Chest pain, Abnormal EKG Patient Disposition: Admitted As Inpatient Discharge Instructions Interventions: ED Discharge Assessment Last Done: 06/25/23 18:34 Discharge Problem: Chest pain Qualifiers: Chest pain type: unspecified Qualified Code(s): R07.9 - Chest pain, unspecified
[2023-06-25 18:41] LABS: iSTAT Creatinine 1.1 mg/dl (0.6-1.3); iSTAT Hemoglobin 10.9 g/dl (14.0-18.0); iSTAT Ionized Calcium 1.13 mmol/l (1.12-1.32); iSTAT Potassium 3.4 mmol/L (3.3-5.0)
--- NOTE | 2023-06-25 18:41 | Pre Anesthesia Assessment ---
Date of Service June 25, 2023 Pre Sedation Assessment Vital Signs Temp Pulse Pulse Resp BP Pulse Ox O2 Del Method 06/25/23 18:34 Room Air 06/25/23 18:33 116 H 06/25/23 18:29 104 H 20 169/108 H 96 Room Air 06/25/23 18:21 100 Room Air 06/25/23 18:15 99 Room Air 06/25/23 18:15 171/116 H 06/25/23 18:15 95 Room Air 06/25/23 18:09 98.6 F 108 H 16 97 Room Air Cardiovascular RRR, no murmur, no edema Respiratory + respiratory effort normal Pre-Sedation Airway Assessment Smoking Status: Current every day smoker Hx Sleep Apnea: No Hx Difficult Intubation: No Short, Thick Neck: No Thyromental Distance: > or= 3.5 Finger Breadths Oral Cavity: + Dental Abnormalities and + WNL Mallampati Class: III ASA: ASA3 Procedure Planning Contraindications for Sedation: none Current Medications Reviewed: Yes Notes The planned sedation has been discussed with the patient. Informed Consent was obtained. I have identified the patient, determined the appropriateness of sedation and have assessed the patient immediately prior to the procedure. All medicine(s) and interventions are by my order.
--- NOTE | 2023-06-25 18:43 | Cardiology Consultation ---
Date of Consultation June 25, 2023 Assessment & Plan (1) CAD (coronary artery disease): Patient seen emergently in the ED after heart alert activated by EMS en route. On arrival ECG reassuring but patient with continued 8 out of 10 chest pain, tachycardic and mildly diaphoretic. With patient's CAD history, risk factors we will plan to proceed with cardiac catheterization. No apparent contraindications to procedure. Discussed risks, benefits, alternatives of procedure with patient and they are willing to proceed. Further recommendations pending findings of coronary angiography. History of Present Illness Attending Physician: Monster Medellin MD History of Present Illness Mr. Champion is a pleasant 48-year-old with coronary artery disease diagnosed in setting of anterior STEMI 03/2021 post PCI seen today emergently in the setting of acute onset chest pain. Patient states he has been doing well for years following his DE. Today acutely developed left-sided chest pressure around 5:30 PM. Try to go for a brief walk but symptoms worse. Pain at its worst 9 out of 10 and reminiscent of what he had with his DE. EMS contacted and prehospital ECG showed ST depressions and there was some question of a posterior DE. Heart alert activated from the field. On arrival patient hypertensive, tachycardic. ECG showed sinus tachycardia with nonspecific ST changes but no ST elevation. Still with ongoing 8/10 chest pain. Prior cardiac history: Presented to [facility] on 03/25/2021 with 1 to 2 hours of rest right-sided chest pain. Cardiac cath revealed 100% mid LAD occlusion treated with single drug-eluting stent. No significant nonculprit vessel disease. Procedure uncomplicated. Postprocedure admitted to ICU. Had no further chest pain. Troponin peaked at 77. Electrically stable on telemetry. Echocardiogram showed EF of 45% with apical akinesis. In hospital labs remarkable for stable hemoglobin of 10.6, LDL of 141, A1c 5.9. Discharged on aspirin, ticagrelor on hospital day 3. Prior cardiac studies: Cardiac cath/PCI: 100% mid LAD occlusion. No other significant disease. PCI of mid LAD occlusion with 3.0 x 18 mm Xience; postdilated with 3.5 NC. Echo 03/26/2021: Borderline LVH, LVEF 45 to 50%, akinetic apex Social history: Ongoing smoker. Previously served in the . 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 Allergies Allergy/AdvReac Type Severity Reaction Status Date / Time pollen extracts AdvReac Mild Watery Eye Verified 04/09/21 14:37 No Known Drug Allergies AdvReac Unknown Verified 04/09/21 14:37 Home Medications Medication Instructions Recorded Confirmed Type albuterol 90 mcg/actuation aerosol 90 mcg inhalation DAILY 03/25/21 06/25/23 History inhaler multivitamin 2 tab PO DAILY 03/25/21 06/25/23 History sertraline 25 mg tablet 25 mg PO DAILY 03/25/21 06/25/23 History metoprolol tartrate 50 mg tablet 50 mg PO BID #60 tabs 03/27/21 06/25/23 Rx atorvastatin 80 mg tablet 80 mg PO QAM #30 tabs 12/09/21 06/25/23 Rx lisinopril 5 mg tablet (Zestril) 5 mg PO QAM #30 tabs 12/09/21 06/25/23 Rx aspirin 81 mg tablet,delayed 81 mg PO QAM #30 tabs 04/21/22 06/25/23 Rx release ticagrelor 90 mg tablet (Brilinta) 90 mg PO BID #60 tabs 04/21/22 06/25/23 Rx famotidine 20 mg tablet 20 mg PO DAILY PRN gerd 06/25/23 06/25/23 History Patient History Medical History CAD (coronary artery disease) Acute anterolateral wall DE Depression Surgical History S/P drug eluting coronary stent placement S/P PTCA (percutaneous transluminal coronary angioplasty) Social History Smoking Status: Current every day smoker Cigarettes Per Day: 10; Do You Dip or Chew Tobacco: No; Hx Alcohol Use: Yes Alcohol type: beer Hx Substance Use: No Preferred Language: Frisian Communication Ability: Effective Aviation Safety Technician Required: No Beliefs That Will Affect Care: None Current Living Situation: Spouse Feels Safe at Home: Yes Assistive Devices: None Review of Systems Review of Systems: Not obtained in the setting of emergent situation Physical Exam Physical Exam: General: Uncomfortable, mildly diaphoretic HEENT: Sclerae anicteric Lungs: Clear anteriorly Cardiac: Tachycardic, regular, no murmurs Vascular: 2+ radial Abdomen: Soft, nontender Extremities: Well perfused, no peripheral edema Neuro: Nonfocal Psych: Alert orient x3, normal affect and mood Results & Data Vital Signs (Past 12 Hours) Vital Signs Temp Pulse Pulse Resp BP Pulse Ox O2 Del Method 06/25/23 18:34 Room Air 06/25/23 18:33 116 H 06/25/23 18:29 104 H 20 169/108 H 96 Room Air 06/25/23 18:21 100 Room Air 06/25/23 18:15 99 Room Air 06/25/23 18:15 171/116 H 06/25/23 18:15 95 Room Air 06/25/23 18:09 98.6 F 108 H 16 97 Room Air PG Care Time/CCT Total # of Minutes Spent Total Time Spent with Patient: Total time spent is greater than 50% in coordination of care (as documented) at patient's floor/unit and/or counseling patient: Coding Level of Care Code 82234 IN/OBS CONSULT LVL 4,60M Diagnoses CAD (coronary artery disease) I25.10
--- NOTE | 2023-06-25 18:52 | History & Physical Report ---
Date of Service June 25, 2023 Assessment & Plan (1) Chest pain: Plan: Left lower chest pain, suspect Patient presented with sudden onset of left lower quadrant chest pain Presented as a heart alert, received aspirin in route with improvement but incomplete resolution of pain Taking emergently to cardiac rn cardiac cath. Last EKG 2020: Anterior infarct, sinus tachycardia. Repeat EKG pending CXR: No acute findings Cardiac catheterization showed no obstructive cardiac disease. Patient was recommended to switch from DAPT to aspirin monotherapy, continue other cardiac medications. Troponin trended overnight, a.m. echo. Suspect noncardiac. - TR band protocol post cath on PCU Patient had just finished Thanksgiving meal prior to onset of pain. DDx does include gas pain. He has no hyperbilirubinemia or transaminitis suggestive of gallbladder pathology, creatinine is normal, and lipase is normal. His pain underlies his left lower rib/LUQ abdomen but this is not worsened by palpation. Pt endorses this continues at 8/10 pain, without radiation and no guarding/rebound. CT A/P pending. Patient does not have inspiratory pain or shortness of breath, no hypoxia, no leg swelling. low suspicion for PE. ? Reactive tachycardia, downtrending post cath. Clinically euvolemic. (2) CAD (coronary artery disease): Plan: CAD 2020 had anterior WI with SUZE to LAD for 100% mid LAD occlusion echo at that time with akinetic apex and EF 45-50%. No evidence of obstructive CAD on repeat cath 06/25, patient switched to monotherapy and other medications continued as noted Former tobacco abuse. Quit after his prior WI, switched to intermittent vape nicotine use. Encourage cessation vape use as well; however coagulated on tobacco cessation. Denies marijuana use Mildly hypertensive, metoprolol pending and lisinopril given. (3) Depression: Plan: Depression Continue SSRI (4) Anemia: Plan: POC hemoglobin 10.9 on arrival, baseline hemoglobin 1011. Microcytic - Pt reports hgb in early was very low and in the 6's. Recieved xfusion in [place]. Had an EGD and colonoscopy which was normal. No ulcers. Patient denies melena, bright red blood per rectum. No history of GI bleed No family history of colorectal cancer. Hemoglobin trended for stability. Iron panel, B12, folate ordered. PT is pending scheduling of a repeat colonoscopy as outpatient for cancer screening, recommend keeping this. No cancer seen on colonoscopy in early , no record of this available. - No signs of bleeding on exam Plan DVT prophylaxis: SCDs Diet: Heart Code: Full Disposition: PCU History of Present Illness Primary Care Provider: ISA Saavedra Iker is a 48-year-old male with a history of CAD who reports he developed left-sided chest pain 9/10 while walking, this was concerning to him as it was similar to a prior WI and he contacted EMS who were concerned about ST depressions? Posterior WI. On review of EKG by cardiology nonspecific ST changes were noted without ST elevation but patient with persistent 8/10 pain of rapid onset and was brought to the [facility].PCP is ISA Garrett from [facility]. PCP records pending. Per last med refill patient has been on atorvastatin 80 mg, Brilinta 90 mg twice daily, Pepcid 20 mg daily, lisinopril 5 mg daily, metoprolol tartrate 50 mg twice daily, and sertraline 100 mg daily. These were all last filled 05/2020 Patient seen in the [facility]. He reports he continues to have an 8/10 pain underneath his lower left rib which feels similar to his prior heart attack, but which is tolerable. Denies shortness of breath, difficulty breathing. Does not have any sternal pressure or pain. No neck or jaw or arm pain. He reports prior to onset of his pain he did have Thanksgiving dinner including turkey, mashed potatoes, gravy. He denies gallbladder problems or pancreas problems in the past. He is a former smoker, switched to vaping after his heart attack 2 years ago. Has a past tree of GERD, denies history of stomach bleed/ulcers. Feels his GERD tends to feel different and is more of a bubbling quality. He has passed gas today Medical History: Reviewed Medications: Reviewed Surgical History: Reviewed Family history: Reviewed Allergies: Reviewed Social History: Vape use. former smoker. Code Status: Full Allergies Allergy/AdvReac Type Severity Reaction Status Date / Time pollen extracts AdvReac Mild Watery Eye Verified 04/09/21 14:37 No Known Drug Allergies AdvReac Unknown Verified 04/09/21 14:37 Home Medications Medication Instructions Recorded Confirmed Type albuterol 90 mcg/actuation aerosol 90 mcg inhalation DAILY 03/25/21 06/25/23 History inhaler multivitamin 2 tab PO DAILY 03/25/21 06/25/23 History sertraline 25 mg tablet 25 mg PO DAILY 03/25/21 06/25/23 History metoprolol tartrate 50 mg tablet 50 mg PO BID #60 tabs 03/27/21 06/25/23 Rx atorvastatin 80 mg tablet 80 mg PO QAM #30 tabs 12/09/21 06/25/23 Rx lisinopril 5 mg tablet (Zestril) 5 mg PO QAM #30 tabs 12/09/21 06/25/23 Rx aspirin 81 mg tablet,delayed 81 mg PO QAM #30 tabs 04/21/22 06/25/23 Rx release ticagrelor 90 mg tablet (Brilinta) 90 mg PO BID #60 tabs 04/21/22 06/25/23 Rx famotidine 20 mg tablet 20 mg PO DAILY PRN gerd 06/25/23 06/25/23 History Past Med/Surg History Medical History CAD (coronary artery disease) Acute anterolateral wall WI Depression Surgical History S/P drug eluting coronary stent placement S/P PTCA (percutaneous transluminal coronary angioplasty) Social History Smoking Status: Current every day smoker Cigarettes Per Day: 10; Do You Dip or Chew Tobacco: No; Hx Alcohol Use: Yes Alcohol type: beer Hx Substance Use: No Preferred Language: Hebrew Communication Ability: Effective 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 NAD. Cooperative. HEENT: Atraumatic, normocephalic. Vision/hearing intact Pulm: CTAB A&P. -wheezes, -rales, -rhonchi. Symmetrical chest rise. No increased work of breathing. No respiratory distress. Cardiac: RRR, -mrg. Radial pulses intact and symmetrical. Abdominal: Endorses left upper quadrant tenderness underlying his lowest left rib, this is not worsened on palpation. No rebound/guarding. Abdomen is soft. Extremities: No pitting edema. TR band in place Results & Data Results & Data Vital Signs (Past 12 Hours) Vital Signs Temp Pulse Pulse Resp BP Pulse Ox O2 Del Method 06/25/23 18:34 Room Air 06/25/23 18:33 116 H 06/25/23 18:29 104 H 20 169/108 H 96 Room Air 06/25/23 18:21 100 Room Air 06/25/23 18:15 99 Room Air 06/25/23 18:15 171/116 H 06/25/23 18:15 95 Room Air 06/25/23 18:09 37.0 C 108 H 16 97 Room Air PG Care Time/CCT Total # of Minutes Spent Total Time Spent with Patient: Total time spent is greater than 50% in coordination of care (as documented) at patient's floor/unit and/or counseling patient: Coding Level of Care Code 21064 INT INP/OBS CARE 3/75MIN Diagnoses Chest pain R07.9 CAD (coronary artery disease) I25.10 Depression F32.9 Anemia D64.9
[2023-06-25 18:56] LABS: Hematocrit (blood only) 32.7 % (42.0-52.0); Mean Corpuscular Hemoglobin 19.1 pg (25.0-34.0); Mean Corpuscular Hgb Conc 27.5 g/dL (32.0-36.0); Mean Corpuscular Volume 69.3 fL (80.0-100.0); Mean Platelet Volume 9.9 fL (9.4-12.4); Platelet Count 307 K/uL (130-400); RDW Coefficient of Variation 19.4 % (11.5-14.5); RDW Standard Deviation 46.7 fL (36.4-46.3); Red Blood Count 4.72 M/uL (4.70-6.10); White Blood Count 8.53 K/ul (4.8-10.8)
[2023-06-25 18:57] LABS: Albumin Globulin Ratio 1.4 (0.9-2); Albumin Level 4.3 gm/dl (3.4-5.0); BUN Creatinine Ratio 12.2 (10-20); Bilirubin,Total 0.4 mg/dl (0.2-1.0); Calcium 9.4 mg/dl (8.6-10.3); Creatinine Clr Calc Pharmacy 122.8 ml/min; Est GFR (African American) 117.5 ml/min; Est GFR (Non-African American) 101.4 ml/min; Globulin 3.1 gm/dl (2.5-4.0); Potassium 3.4 mmol/L (3.5-5.1); Total Protein 7.4 gm/dl (6.0-8.3)
[2023-06-25 19:04] LABS: Troponin I High Sensitivity 13.2 pg/ml (0-20)
--- NOTE | 2023-06-25 19:16 | Post Anesthesia Assessment ---
Date of Service June 25, 2023 Post Sedation Assessment Vital Signs Temp Pulse Pulse Resp BP Pulse Ox O2 Del Method 06/25/23 18:34 Room Air 06/25/23 18:33 116 H 06/25/23 18:29 104 H 20 169/108 H 96 Room Air 06/25/23 18:21 100 Room Air 06/25/23 18:15 99 Room Air 06/25/23 18:15 171/116 H 06/25/23 18:15 95 Room Air 06/25/23 18:09 98.6 F 108 H 16 97 Room Air Recovery Score Activity: Moves 4 extremities Respiration: Deep Breath/Cough Circulation: +/-20% PreAnes Value Consciousness: Fully Awake Oxygen Saturation: O2 needed for >90% Discharge Sedation Level of Care: Fast Track Phase II Post Sedation Plan On clinical assessment, the patient appears to have tolerated the sedation without complications. Patient is recovering as anticipated. Patient will continue to be monitored by nursing and may be discharged when sedation discharge criteria are met per below protocol. Upon Completions of procedure up to 15 minutes continue every 5 minute vital signs and the P.A.R. score; then discharge to a Phase I or Fast Track to Phase II per the following guidelines: * Discharge Patient to appropriate Phase II area if PAR is 8 or greater or retu rn to pre- procedure baseline. The post - procedure orders will be as directed. * If PAR score is less than 8 or not return to pre-procedure baseline then patient will follow Phase I monitoring till PAR is reached for Phase II. The Phase I may be done in procedure room or may call to secure a Phase I area. * If naloxone or flumazenil are used for reversal, hold in Phase I for continued monitoring from when last reversal dose was given for a minimum of 60 minutes or longer pending the nurse and/or physician discretion of patient condition before discharge to Phase II. Please call the Sedation Physician to re-evaluate and complete post-note for discharge to Phase II area. Do NOT discharge from procedure sedation or Phase 1 until post- sedation evaluation note is complete by procedure /sedation MD Sedation Discharge Instructions to be given to the patient at discharge to home.
[2023-06-25 19:18] LABS: INR 0.9 (0.9-1.1); Partial Thromboplastin Ratio 0.8; Partial Thromboplastin Time 22.2 Seconds (21.0-31.0); Prothrombin Time 10.4 Seconds (9.0-12.0)
[2023-06-25 19:20] LABS: Basophils # (auto) 0.14 K/uL (0.00-0.20); Basophils % (auto) 1.6 %; Eosinophils % (auto) 3.5 %; Hypochromasia Present; Immature Granulocytes # (auto) 0.02 K/uL (0.01-0.20); Immature Granulocytes % (auto) 0.2 %; Lymphocytes % (auto) 22.3 %; Microcytosis Present; Monocytes # (auto) 0.74 K/uL (0.11-0.59); Monocytes % (auto) 8.7 %; Neutrophils # (auto) 5.43 K/uL (1.40-6.50); Neutrophils % (auto) 63.7 %; Ovalocytes 1+; Polychromasia 1+
[2023-06-25] MEDS ORDERED: ONDANSETRON INJ 2 MG/ML 2 ML VIAL IV PRN (19:22)
--- NOTE | 2023-06-25 19:22 | Cardiac Catheterization ---
[facility] Data: [facility] Cardiac Status Clinical evaluation leading to the procedure CAD Presenation: Unstable angina Anginal Classification: CCS IV Diagnostic Physicians Name: Monster Medellin MD Closure Device Recommendations: Medical Therapy and/or Counseling Cardiac Cath Procedure Full Procedure Date June 25, 2023 Pre-Procedure Diagnosis Pre-Procedure Diagnosis: Acute Coronary Syndrome AUC Score AUC Score: 9 Post-Procedure Diagnosis Post-Procedure Diagnosis: Mild CAD, Normal LV Systolic Function and Normal Intracardiac Pressures Procedure(s) Performed Procedure(s) Performed: Coronary Angiography, Left Heart Cath and LV Angiography [employer] Monster Medellin MD Surgery Specialist(s) Natasha Estimated Blood Loss Estimated Blood Loss: 5 Medication(s) Medication(s): Fentanyl, Heparin, Lidocaine 1%, Nicardipine, Nitroglycerin and Versed Summary of Findings Indication: Suspected ACS Access: 6 Fr right radial artery Catheters: [place], pigtail Findings: LM -normal caliber, angiographically normal LAD -medium caliber, proximal luminal irregularities, mid LAD stent widely patent. Distal vessel without significant disease and extends to apex. Medium D1 without disease. Circumflex -medium caliber, no significant disease RCA -dominant, large caliber, no significant disease LVEDP -9 LVEF 60%, no wall motion abnormalities. No significant MR. Normal caliber ascending aorta. Arterial Closure: TR band Summary: 1. Minimal nonobstructive CAD Widely patent mid LAD stent 2. Normal intracardiac filling pressure 3. LVEF 60% with no apparent wall motion abnormalities. Recommendations: Admit to telemetry for further observation Repeat echocardiogram in the a.m. Further evaluation for noncardiac causes of ongoing chest pain Continued ASCVD risk factor modification. Continue current aspirin, metoprolol, lisinopril, statin. Can discontinue ticagrelor. Further discussion regarding smoking and alcohol cessation. Hemodynamics Rest Ao:: 107/80/97 Final Ao: 118/69/91 LV: 104/9 Recommendations Recommendations: Medical Therapy and/or Counseling Radiation Exposure (mGy) 786 Contrast (mls) 50 Anesthesia Moderate 5821-6187 Procedural Complication(s) None Disposition PCU I attest to the content of the Intraoperative Record and any orders documented therein. Any exceptions are noted below. [facility] Card Cath Procedure Codes Cardiac Catheterization Procedure 1: Cardiovascular Cath Procedures: 39536 Coronaries and LHC (+/-LV) Moderate Sedation Procedure 1: Sedation/Anesthesia: 05389 Mod Sedation by the same physician;Init15 Min Child Age 5 & Up PG Care Time/CCT Total # of Minutes Spent Total Time Spent with Patient: Total time spent is greater than 50% in coordination of care (as documented) at patient's floor/unit and/or counseling patient:
[2023-06-25] MEDS ORDERED: SODIUM CHLORIDE 0.9% 1,000 ML IV SCH (19:30)
[2023-06-25] MEDS ORDERED: FAMOTIDINE 20 MG TAB PO PRN (19:31)
[2023-06-25] MEDS ORDERED: ACETAMINOPHEN 325 MG TAB PO PRN (19:31)
[2023-06-25 20:30] LABS: Ferritin 4.3 ng/ml (8-388)
[2023-06-25] MEDS: METOPROLOL TARTRATE 25 MG TAB PO SCH (20:40)
[2023-06-25] MEDS: FAMOTIDINE 20 MG in SYRINGE 3 ML IV SCH (20:40)
[2023-06-25 20:44] LABS: Folate (Folic Acid),Ser orPlas 11.15 ng/ml (>5.38)
[2023-06-25] MEDS ORDERED: METOPROLOL TARTRATE 50 MG TAB PO SCH (21:00)
[2023-06-25] MEDS ORDERED: lisinopril 5 MG TAB PO SCH (21:00)
[2023-06-25] MEDS: POTASSIUM CHLORIDE / WTR 10 MEQ/100 ML PLCT IV SCH ×3 (21:19→23:56)
--- NOTE | 2023-06-25 22:59 | CT Scan Report ---
Exam(s): CT ABDOMEN + PELVIS Without Contrast EXAM: CT Abdomen and Pelvis Without Intravenous Contrast CLINICAL HISTORY: Reason for exam: LUQ abd pain. TECHNIQUE: Axial computed tomography images of the abdomen and pelvis without intravenous contrast. CTDI is 22.61 mGy and DLP is 1133.23 mGy-cm. Automated exposure control was utilized for the study. A dose lowering technique was utilized adhering to the principles of ALARA. COMPARISON: No relevant prior studies available. FINDINGS: Lung bases: Bibasilar atelectasis. Mediastinum: Large hiatal hernia. ABDOMEN: Liver: Unremarkable. Gallbladder and bile ducts: Unremarkable. No calcified stones. No ductal dilation. Pancreas: Unremarkable. No ductal dilation. Spleen: Unremarkable. No splenomegaly. Adrenals: Unremarkable. No mass. Kidneys and ureters: 2 mm attenuating the inferior pole of the left kidney may represent angiomyolipoma. No obstructing stones. No hydronephrosis. Stomach and bowel: Diverticulosis without evidence of acute diverticulitis. No obstruction. PELVIS: Appendix: No findings to suggest acute appendicitis. Bladder: Unremarkable. No stones. Reproductive: Unremarkable as visualized. ABDOMEN and PELVIS: Intraperitoneal space: Unremarkable. No free air. No significant fluid collection. Bones/joints: No acute fracture. No dislocation. Soft tissues: Unremarkable. Vasculature: Unremarkable. No abdominal aortic aneurysm. Lymph nodes: Unremarkable. No enlarged lymph nodes. IMPRESSION: 1. Large hiatal hernia. 2. Diverticulosis without evidence of acute diverticulitis. Electronically signed by: Jessenia Gonzalez MD 06/25/23 22:59 PM
[2023-06-25] MEDS ORDERED: LIDOCAINE 5% 1 PATCH TD STA (23:20)
[2023-06-25] MEDS ORDERED: KETOROLAC TROMETHAMINE 15 MG/ML VIAL IV PRN (23:20)
[2023-06-26] MEDS: MoRPHine SULFATE 2 MG/ML CARP IV PRN ×2 (01:34→08:20)
[2023-06-26 03:51] LABS: BUN Creatinine Ratio 12.1 (10-20); Calcium 8.6 mg/dl (8.6-10.3); Chol HDL Ratio 3.2 (0-5); Creatinine Clr Calc Pharmacy 110.1 ml/min; Est GFR (African American) 115.9 ml/min; Potassium 3.8 mmol/L (3.5-5.1)
[2023-06-26 04:08] LABS: Basophils # (auto) 0.14 K/uL (0.00-0.20); Basophils % (auto) 1.8 %; Eosinophils # (auto) 0.48 K/uL (0.00-0.50); Eosinophils % (auto) 6.1 %; Hematocrit (blood only) 28.5 % (42.0-52.0); Hemoglobin 8.1 g/dl (14.0-18.0); Hypochromasia Present; Immature Granulocytes # (auto) 0.02 K/uL (0.01-0.20); Immature Granulocytes % (auto) 0.3 %; Mean Corpuscular Hemoglobin 19.3 pg (25.0-34.0); Mean Corpuscular Hgb Conc 28.4 g/dL (32.0-36.0); Mean Platelet Volume 9.7 fL (9.4-12.4); Microcytosis Present; Monocytes # (auto) 0.72 K/uL (0.11-0.59); Monocytes % (auto) 9.1 %; Neutrophils # (auto) 3.91 K/uL (1.40-6.50); Neutrophils % (auto) 49.7 %; Platelet Count 269 K/uL (130-400); RDW Coefficient of Variation 18.9 % (11.5-14.5); RDW Standard Deviation 45.9 fL (36.4-46.3); Red Blood Count 4.19 M/uL (4.70-6.10); Tear Drop Cells 1+; White Blood Count 7.87 K/ul (4.8-10.8)
--- NOTE | 2023-06-26 06:51 | XRay Report ---
KUB CLINICAL HISTORY: Left upper quadrant abdominal pain. FINDINGS: 2 AP, portable, supine abdominal radiographs are obtained. Correlation is made with abdomin al CT performed the same day 06/25/2023. There is a nonobstructed abdominal bowel gas pattern. No kg dence of intraperitoneal free air is seen on these supine images. Excreted IV contrast as seen in the renal collecting system bilaterally and bladder. There are no abnormal abdominal calcifications. A h iatal hernia is noted. Lung bases appear clear. The bony structures are intact as visualized. IMPRESSION: 1. No acute abnormality is identified. 2. Hiatal hernia. Inflammation around the hiatal hernia seen on today's abdominal CT scan is not appr eciated by x-ray. This is nonspecific and could potentially be seen with ulcer disease or possibly a nonspecific gastritis. If warranted this could be further assessed with endoscopy. Electronically signed by: Faustino Sandy M.D. 06/26/2023 6:48 AM
--- NOTE | 2023-06-26 07:27 | Hospitalist Progress Note ---
Date of Service June 26, 2023 Assessment & Plan (1) Chest pain: (2) CAD (coronary artery disease): (3) Depression: (4) Anemia: Plan Hiatal hernia/ Gastritis -Gastritis -NSAID induced ? -KUB:Inflammation around the hiatal hernia -Protonix 40 mg QAM -Famotidine Chest pain Patient presented with sudden onset of left lower quadrant chest pain - Patient had just finished Thanksgiving meal prior to onset of pain. DDx does include gas pain. Presented as a heart alert, received aspirin in route with improvement but incomplete resolution of pain Taking emergently to cardiac lab manager. Last EKG 2020: Anterior infarct, sinus tachycardia. Repeat EKG pending CXR: No acute findings Cardiac catheterization showed no obstructive cardiac disease. Patient was recommended to switch from DAPT to aspirin monotherapy, continue other cardiac medications. - Troponin trended overnight, a.m. echo. Suspect noncardiac. - TR band protocol post cath on PCU He has no hyperbilirubinemia or transaminitis suggestive of gallbladder pathology, creatinine is normal, and lipase is normal. His pain underlies his left lower rib/LUQ abdomen but this is not worsened by palpation. Pt endorses this continues at 8/10 pain, without radiation and no guarding/rebound. Patient does not have inspiratory pain or shortness of breath, no hypoxia, no leg swelling. low suspicion for PE. Reactive tachycardia, downtrending post cath. Clinically euvolemic. CAD (coronary artery disease): 2020 had anterior IA with SUZE to LAD for 100% mid LAD occlusion echo at that time with akinetic apex and EF 45-50%. No evidence of obstructive CAD on repeat cath 06/25, patient switched to monotherapy and other medications continued as noted Former tobacco abuse. Quit after his prior IA, switched to intermittent vape nicotine use. Encourage cessation vape use as well; however coagulated on tobacco cessation. Denies marijuana use Mildly hypertensive, metoprolol pending and lisinopril given. Depression: Continue SSRI Anemia: POC hemoglobin 10.9 on arrival, baseline hemoglobin 1011. Microcytic - Pt reports hgb in early was very low and in the 6's. Recieved xfusion in [place]. Had an EGD and colonoscopy which was normal. No ulcers. Patient denies melena, bright red blood per rectum. No history of GI bleed No family history of colorectal cancer. Hemoglobin trended for stability. Iron panel, B12, folate ordered. PT is pending scheduling of a repeat colonoscopy as outpatient for cancer screening, recommend keeping this. No cancer seen on colonoscopy in early , no record of this available. - No signs of bleeding on exam Plan DVT prophylaxis: SCDs Diet: Heart Code: Full Disposition: PCU Admission and Anticipated Discharge Date Admission Date: June 25, 2023 Review of Systems Review of Systems: as per HPI Physical Exam Constitutional: WD/WN, vitals as above Respiratory: normal respiratory effort, lungs clear to auscultation Cardiovascular: RRR, no murmur, no edema Gastrointestinal (Abdomen): normal bowel sounds, soft, nontender, no hepatosplenomegaly Musculoskeletal: no cyanosis or clubbing, extremities motor strength 5/5 Results & Data Results & Data Vital Signs (Past 12 Hours) Vital Signs Temp Pulse Pulse Resp BP Pulse Ox O2 Del Method 06/26/23 03:08 36.8 C 20 141/90 H 97 Room Air 06/25/23 23:15 36.9 C 77 20 135/86 97 Room Air 06/25/23 23:00 86 06/25/23 21:07 85 18 137/85 98 Room Air 06/25/23 20:37 97 H 18 130/68 96 Room Air 06/25/23 20:07 105 H 18 129/73 97 Room Air 06/25/23 19:52 94 H 18 154/85 H 98 Room Air 06/25/23 19:37 36.7 C 98 H 18 128/85 97 Room Air 06/25/23 19:32 36.7 C 108 H 20 144/91 H 95 Room Air 06/25/23 19:31 101 H 18 128/87 98 Room Air 06/25/23 19:25 103 H
[2023-06-26 07:39] LABS: Estimated Average Glucose 114 mg/dl; Hemoglobin A1C 5.6 % (4.5-5.6)
[2023-06-26] MEDS: METOPROLOL TARTRATE 25 MG TAB PO SCH (08:04)
[2023-06-26] MEDS: FAMOTIDINE 20 MG in SYRINGE 3 ML IV SCH (08:19)
[2023-06-26] MEDS ORDERED: SERTRALINE HCL 50 MG TABLET PO SCH (09:00)
[2023-06-26] MEDS ORDERED: ATORVASTATIN 40 MG TAB PO SCH ×2 (09:00)
[2023-06-26] MEDS ORDERED: MULTIVITAMIN CHEWABLE TAB PO SCH (09:00)
[2023-06-26] MEDS ORDERED: PANTOprazole 40 MG TAB PO SCH ×3 (09:00)
[2023-06-26] MEDS ORDERED: IRON SUCROSE 400 MG in SODIUM CHLORIDE 0.9% 250 ML IV ONE (09:00)
[2023-06-26] MEDS ORDERED: CYANOCOBALAMIN 1000 MCG/ML VIAL IM SCH (09:00)
[2023-06-26] MEDS ORDERED: ASPIRIN 81 MG ECTAB PO SCH ×2 (09:00)
[2023-06-26] MEDS ORDERED: lisinopril 5 MG TAB PO SCH ×2 (09:00)
[2023-06-26] MEDS ORDERED: ALBUTEROL HFA 8 GM INHALER INH SCH (09:00)
--- NOTE | 2023-06-26 09:26 | Electrocardiogram Report ---
Test Reason : Blood Pressure : / mmHG Vent. Rate : 098 BPM Atrial Rate : 098 BPM P-R Int : 134 ms QRS Dur : 080 ms QT Int : 338 ms P-R-T Axes : 070 075 072 degrees QTc Int : 431 ms Normal sinus rhythm with sinus arrhythmia Nonspecific ST abnormality Abnormal ECG When compared with ECG of 25-MAR-2021 22:39, ST no longer elevated in Anterior leads Confirmed by Kwan Davidson ([id number]) on 06/26/2023 9:26:04 AM Referred By: REFERRED SELF Confirmed By:Kwan Davidson
--- NOTE | 2023-06-26 12:38 | Discharge Summary ---
Date of Service June 26, 2023 Admission HPI Per Admitting Provider Iker is a 48-year-old male with a history of CAD who reports he developed left-sided chest pain 9/10 while walking, this was concerning to him as it was similar to a prior RI and he contacted EMS who were concerned about ST depressions? Posterior RI. On review of EKG by cardiology nonspecific ST changes were noted without ST elevation but patient with persistent 8/10 pain of rapid onset and was brought to the [facility].PCP is ISA Garrett from [facility]. PCP records pending. Per last med refill patient has been on atorvastatin 80 mg, Brilinta 90 mg twice daily, Pepcid 20 mg daily, lisinopril 5 mg daily, metoprolol tartrate 50 mg twice daily, and sertraline 100 mg daily. These were all last filled 05/2020 Patient seen in the [facility]. He reports he continues to have an 8/10 pain underneath his lower left rib which feels similar to his prior heart attack, but which is tolerable. Denies shortness of breath, difficulty breathing. Does not have any sternal pressure or pain. No neck or jaw or arm pain. He reports prior to onset of his pain he did have Thanksgiving dinner including turkey, mashed potatoes, gravy. He denies gallbladder problems or pancreas problems in the past. He is a former smoker, switched to vaping after his heart attack 2 years ago. Has a past tree of GERD, denies history of stomach bleed/ulcers. Feels his GERD tends to feel different and is more of a bubbling quality. He has passed gas today Medical History: Reviewed Medications: Reviewed Surgical History: Reviewed Family history: Reviewed Allergies: Reviewed Social History: Vape use. former smoker. Code Status: Full Admission Exam Per Admitting Provider : General: A&Ox3. NAD. Cooperative. HEENT: Atraumatic, normocephalic. Vision/hearing intact Pulm: CTAB A&P. -wheezes, -rales, -rhonchi. Symmetrical chest rise. No increased work of breathing. No respiratory distress. Cardiac: RRR, -mrg. Radial pulses intact and symmetrical. Abdominal: Endorses left upper quadrant tenderness underlying his lowest left rib, this is not worsened on palpation. No rebound/guarding. Abdomen is soft. Extremities: No pitting edema. TR band in place Principal Diagnosis Hiatal Hernia Gastritis Discharge Exam Constitutional WD/WN, vitals as above Respiratory normal respiratory effort, lungs clear to auscultation Cardiovascular RRR, no murmur, no edema Gastrointestinal (Abdomen) normal bowel sounds, soft, nontender, no hepatosplenomegaly Skin no rashes, warm and dry Psychiatric A+Ox3, euthymic affect Discharge Data Allergies Allergy/AdvReac Type Severity Reaction Status Date / Time pollen extracts AdvReac Mild Watery Eye Verified 04/09/21 14:37 No Known Drug Allergies AdvReac Unknown Verified 04/09/21 14:37 Consultations 06/25/23 18:32 Consult Cardiac Catheterization Stat 06/25/23 18:39 ED Decision to Admit Stat Procedures Performed Operation Date: 06/25/23 18:30 Actual Procedures p Cineradiography w/Routine Exam - Monster Medellin MD p Cath, Left with Cors and Vent - Monster Medellin MD Ordered Studies Chest X-Ray 06/25/23 18:16 XR chest 1V portable CLINICAL HISTORY: Chest pain, nonspecific TECHNIQUE: Single frontal radiograph of the chest was obtained. Comparison: None available at the time of this dictation. FINDINGS: No lines and tubes are seen. The cardiomediastinal silhouette is normal. The lungs are clear. No evidence of pleural effusion or pneumothorax. IMPRESSION: No acute chest disease. ACT 112: Negative or not required by law. Electronically signed by: Rip Rivas M.D. 06/25/2023 6:27 PM Abdomen/Pelvis CT 06/25/23 19:29 Exam(s): CT ABDOMEN + PELVIS Without Contrast EXAM: CT Abdomen and Pelvis Without Intravenous Contrast CLINICAL HISTORY: Reason for exam: LUQ abd pain. TECHNIQUE: Axial computed tomography images of the abdomen and pelvis without intravenous contrast. CTDI is 22.61 mGy and DLP is 1133.23 mGy-cm. Automated exposure control was utilized for the study. A dose lowering technique was utilized adhering to the principles of ALARA. COMPARISON: No relevant prior studies available. FINDINGS: Lung bases: Bibasilar atelectasis. Mediastinum: Large hiatal hernia. ABDOMEN: Liver: Unremarkable. Gallbladder and bile ducts: Unremarkable. No calcified stones. No ductal dilation. Pancreas: Unremarkable. No ductal dilation. Spleen: Unremarkable. No splenomegaly. Adrenals: Unremarkable. No mass. Kidneys and ureters: 2 mm attenuating the inferior pole of the left kidney may represent angiomyolipoma. No obstructing stones. No hydronephrosis. Stomach and bowel: Diverticulosis without evidence of acute diverticulitis. No obstruction. PELVIS: Appendix: No findings to suggest acute appendicitis. Bladder: Unremarkable. No stones. Reproductive: Unremarkable as visualized. ABDOMEN and PELVIS: Intraperitoneal space: Unremarkable. No free air. No significant fluid collection. Bones/joints: No acute fracture. No dislocation. Soft tissues: Unremarkable. Vasculature: Unremarkable. No abdominal aortic aneurysm. Lymph nodes: Unremarkable. No enlarged lymph nodes. IMPRESSION: 1. Large hiatal hernia. 2. Diverticulosis without evidence of acute diverticulitis. Electronically signed by: Jessenia Gonzalez MD 06/25/23 22:59 PM KUB X-Ray 06/25/23 19:31 KUB CLINICAL HISTORY: Left upper quadrant abdominal pain. FINDINGS: 2 AP, portable, supine abdominal radiographs are obtained. Correlation is made with abdominal CT performed the same day 06/25/2023. There is a nonobstructed abdominal bowel gas pattern. No evidence of intraperitoneal free air is seen on these supine images. Excreted IV contrast as seen in the renal collecting system bilaterally and bladder. There are no abnormal abdominal calcifications. A hiatal hernia is noted. Lung bases appear clear. The bony structures are intact as visualized. IMPRESSION: 1. No acute abnormality is identified. 2. Hiatal hernia. Inflammation around the hiatal hernia seen on today's abdominal CT scan is not appreciated by x-ray. This is nonspecific and could potentially be seen with ulcer disease or possibly a nonspecific gastritis. If warranted this could be further assessed with endoscopy. Electronically signed by: Faustino Sandy M.D. 06/26/2023 6:48 AM Labs 06/25/23 06/25/23 06/26/23 18:25 18:28 03:23 WBC 8.53 7.87 RBC 4.72 4.19 L Hgb 9.0 L 8.1 L POC Hgb 10.9 L Hct 32.7 L 28.5 L POC Hct 32 L MCV 69.3 L 68.0 L MCH 19.1 L 19.3 L MCHC 27.5 L 28.4 L RDW Std Deviation 46.7 H 45.9 RDW Coeff of Jesus 19.4 H 18.9 H Plt Count 307 269 MPV 9.9 9.7 Immature Gran % (Auto) 0.2 0.3 Neut % (Auto) 63.7 49.7 Lymph % (Auto) 22.3 33.0 [place] % (Auto) 8.7 9.1 Eos % (Auto) 3.5 6.1 Baso % (Auto) 1.6 1.8 Neut # (Auto) 5.43 3.91 Lymph # (Auto) 1.90 2.60 [place] # (Auto) 0.74 H 0.72 H Eos # (Auto) 0.30 0.48 Baso # (Auto) 0.14 0.14 Immature Gran # (Auto) 0.02 0.02 Polychromasia 1+ Hypochromasia Present Present Microcytosis Present Present Tear Drop Cells 1+ Ovalocytes 1+ PT 10.4 INR 0.9 APTT 22.2 PTT Ratio 0.8 POC Sodium 137 Sodium 136 135 L POC Potassium 3.4 Potassium 3.4 L 3.8 POC Chloride 103 Chloride 103 105 Carbon Dioxide 22 21 POC Total CO2 21 L Anion Gap 11 9 POC Anion Gap 17.0 POC BUN 10 BUN 11 11 Creatinine 0.90 0.91 POC Creatinine 1.1 Est Cr Clr Drug Dosing 122.8 110.1 Est GFR ( Amer) 117.5 115.9 Est GFR (Non-Af Amer) 101.4 100.0 BUN/Creatinine Ratio 12.2 12.1 Glucose 106 H 97 POC Glucose (other) 105 H Estimat Average Glucose 114 Hemoglobin A1c 5.6 Calcium 9.4 8.6 POC Ioniz Calcium Alexx 1.13 Iron 18 L TIBC 519 H Unsaturated IBC 501 H Transferrin % Sat 3 L Ferritin 4.3 L Total Bilirubin 0.4 AST 24 ALT 17 Alkaline Phosphatase 77 Troponin I High Sens 13.2 44.4 H D Total Protein 7.4 Albumin 4.3 Globulin 3.1 Albumin/Globulin Ratio 1.4 Triglycerides 88 Cholesterol 159 LDL Cholesterol, Calc 92 VLDL Cholesterol, Calc 18 HDL Cholesterol 49 Cholesterol/HDL Ratio 3.2 Lipase 34 Vitamin B12 138 L Folate 11.15 06/26/23 09:21 WBC RBC Hgb POC Hgb Hct POC Hct MCV MCH MCHC RDW Std Deviation RDW Coeff of Jesus Plt Count MPV Immature Gran % (Auto) Neut % (Auto) Lymph % (Auto) [place] % (Auto) Eos % (Auto) Baso % (Auto) Neut # (Auto) Lymph # (Auto) [place] # (Auto) Eos # (Auto) Baso # (Auto) Immature Gran # (Auto) Polychromasia Hypochromasia Microcytosis Tear Drop Cells Ovalocytes PT INR APTT PTT Ratio POC Sodium Sodium POC Potassium Potassium POC Chloride Chloride Carbon Dioxide POC Total CO2 Anion Gap POC Anion Gap POC BUN BUN Creatinine POC Creatinine Est Cr Clr Drug Dosing Est GFR ( Amer) Est GFR (Non-Af Amer) BUN/Creatinine Ratio Glucose POC Glucose (other) Estimat Average Glucose Hemoglobin A1c Calcium POC Ioniz Calcium Alexx Iron TIBC Unsaturated IBC Transferrin % Sat Ferritin Total Bilirubin AST ALT Alkaline Phosphatase Troponin I High Sens 20.7 H D Total Protein Albumin Globulin Albumin/Globulin Ratio Triglycerides Cholesterol LDL Cholesterol, Calc VLDL Cholesterol, Calc HDL Cholesterol Cholesterol/HDL Ratio Lipase Vitamin B12 Folate 06/25/23 18:19 CL Cath Imgs for PACS use only Stat 06/25/23 19:29 CT abd pelvis wo con Stat Hospital Course (1) Chest pain: (2) CAD (coronary artery disease): (3) Depression: (4) Anemia: Plan 48 y/o male with history of CAD, who reported left sided chest pain 04/12 Hiatal Hernia/ Gastritis Hiatal hernia with microcytic anemia, iron deficiency, B12 deficiency -KUB:Inflammation around the hiatal hernia , CT : Large hiatal hernia. -Protonix 40 mg QAM -Repeat CBC every 1-2 weeks -Vitamin b12 supplementation PO daily (Received 1,000 mcg IM 1 dose) -Iron supplementation PO daily (Received iron sucrose 400 mg) Chest pain Patient presented with sudden onset of left lower quadrant chest pain - Patient had just finished Thanksgiving meal prior to onset of pain. Presented as a heart alert, received aspirin in route with improvement but incomplete resolution of pain Taking emergently to cardiac laboratory apparatus glass blower, showed no obstructive cardiac disease. - Patient was recommended to switch from DAPT to aspirin monotherapy, continue other cardiac medications. (risk vs benefits discussed) Echo: improved from previous, EF 60-65% CAD (coronary artery disease): 2020 had anterior RI with SUZE to LAD for 100% mid LAD occlusion echo at that time with akinetic apex and EF 45-50%. No evidence of obstructive CAD on repeat cath 06/25, patient switched to monotherapy and other medications continued as noted Former tobacco abuse. Quit after his prior RI, switched to intermittent vape nicotine use. Encourage cessation vape use as well; however coagulated on tobacco cessation. Denies marijuana use Depression: Continue SSRI Anemia: Vitamin B 12 deficiency POC hemoglobin 10.9 on arrival, baseline hemoglobin 1011. Microcytic - Pt reports hgb in early was very low and in the 6's. Recieved [facility]fusion in [place]. Had an EGD and colonoscopy which was normal. no ulcers Patient denies melena, bright red blood per rectum. No history of GI bleed No family history of colorectal cancer. - No signs of bleeding on exam Plan DVT prophylaxis: SCDs Diet: Heart Code: Full Disposition: PCU Total Time Total Time Spent Total Time Spent (In Minutes): <30 Discharge Plan Discharge Items Patient Disposition: Home - Self-Care Reason For Visit: CHEST/ABD PAIN POST CATH Discharge Diagnosis: Hiatal hernia Gastritis Activity: Per Instructions section Non-emergency contact: Primary Care Provider Call non-emergency contact if: you have any medication questions, your pain is worsening and your temperature is above 101 Follow-up/Referrals: Diane De Jesus CRNP [Primary Care Provider] - (Please call and make an appointment with your PCP within 5-7 days) Diet: Regular Addtl Attending Provider Instructions: You were admitted to the hospital due to chest pain. Due your history of Coronary artery disease, Cardiology decided to performed a cardiac catheterization. Fortunately, there was no obstructive artery occluded. Further investigation showed an Hiatal hernia and gastritis on the CT of your abdomen. When the inflammation is chronic your stomach do not absorbed all nutrients needed. One them are Vitamin B12 which is mostly use to form red blood cells. Another consequence of chronic inflammation or gastritis is bleeding. Right now, nothing in the work up point us to an active bleeding that worry us. It's very important to keep a close follow up with your PCP. You will need an endoscopy sooner than later and continue monitoring your hemoglobin. New medications: - Protonix 40 mg daily - Iron supplementation daily (Iron can cause constipation, you can use a stool softeners -Vitamin B12 take daily Follow-up appointments: Make a follow-up appointment with your PCP within the next week. It is very important that you follow up with them shortly after discharge from the hospital. Medications: Your medication list has been reviewed and reconciled upon discharge to ensure accuracy and continuity of care. An updated list of all your medications is included with your hospital discharge paperwork. Please review this list closely, and make note of any changes. Take your medications as instructed; do not skip a dose of your medicines. Make sure all of your doctors know every medicine you are taking (including [id number]-[id number] medicines, vitamins, and supplements). Call your primary care provider before taking any new medicines (including fczq-pao-nznrcgd medicines, vitamins, and supplements), because some of these may interact with your current medications, or may make your symptoms worse. Tell your primary care provider if you cannot afford your medications. CALL 911 OR GO TO THE EMERGENCY DEPARTMENT if you experience any of the following: Sudden, severe abdominal pain or nausea/vomiting Severe chest pain, or chest pain that radiates (moves) to your jaw or arm Sudden, severe shortness of breath or difficulty breathing Thank you for allowing us to participate in your care. Pending Studies at Discharge: No Stand-Alone Forms: My [facility], Smoking Cessation Medications and DC Order Prescriptions: New pantoprazole 40 mg Tablet,Delayed Release (Dr/Ec) 40 mg PO QAM 30 Days Qty: 30 0RF cyanocobalamin (vitamin B-12) [Vitamin B-12] 1,000 mcg tablet 1,000 mcg PO DAILY Qty: 30 0RF ferrous sulfate [Iron (ferrous sulfate)] 325 mg (65 mg iron) tablet 325 mg PO DAILY Qty: 30 0RF Continued atorvastatin 80 mg tablet 80 mg PO QAM Qty: 30 6RF lisinopril [Zestril] 5 mg tablet 5 mg PO QAM Qty: 30 6RF aspirin 81 mg tablet,delayed release (DR/EC) 81 mg PO QAM Qty: 30 0RF Brilinta 90 mg tablet 90 mg PO BID Qty: 60 0RF sertraline 25 mg Tablet 25 mg PO DAILY albuterol 90 mcg/actuation Aerosol 90 mcg INHALATION DAILY multivitamin Tablet,Chewable 2 tab PO DAILY metoprolol tartrate 50 mg Tablet 50 mg PO BID Qty: 60 6RF famotidine 20 mg tablet 20 mg PO DAILY PRN (Reason: gerd) Discharge Orders: Discharge Order (Routine); Ordered 06/26/23 Ordered By: Mary Hobson Admission Data Admit Date/Time: 06/25/23 19:17 Attending Provider: Benton Morris Admit Provider: Charlie Johnson Primary Care Provider: Diane De Jesus Other Providers: Monster Medellin; Charlie Johnson Other Interventions: Discharge Summary Assessment (RN) Last Done: 06/26/23 13:03 Supervising Physician Co-Signing Physician Notes I personally examined the patient and verified all liriano points of history and exam, discussed case, and agree with decision making with Dr Robert Hobson Feeling better and would like to go home. Extensive discussion on working diagnoses, differential diagnoses, and next stepsshe is comfortable with the uncertainty as well as taking responsibility for the plan and his safety. Vitals noted, in general he is awake and alert pleasant no distress. HEENT no rmocephalic atraumatic mucous membranes moist. Breathing unlabored no accessory muscle use good effort. Skin shows no rashes no pallor or icterus. Neuro without focal deficits. Chest painfortunately cardiac cath patent coronaries, echo improved from his previous, and this appears to been upper GI discomfort related to his hiatal hernia (see below) Hiatal hernia with microcytic anemia, iron deficiency, B12 deficiencycertainly this would all fit with a gentleman having much more longstanding inflammatory gastritis than he had symptoms to suggest. He is safe for home, we discussed with the anemia, if he has any "red flag" symptoms he would definitely need to come back to the hospital ELLEN, and at least until his scope, would ask that he gets hemoglobin checked 12 times a week. We discussed next steps being Protonix twice daily, iron and B12 supplementation, EGD in the near future, vigilance for safety and return if any worsening; at the same time, given his coronary disease with a stent, given that he does not show hemorrhageand I suspect GI bleeding would be more of a slow ooze than any true hemorrhage, risk/benefit favors continuing his 81 mg aspirin for now. We also discussed if his scope did not show some sort of chronic gastritis type features, it is also possible something small bowel like celiac disease could explain his anemia/B12/iron deficiencysafe for home, close outpatient follow-up, aware that this is "an open ended story" at this time. Otherwise as above
--- NOTE | 2023-06-26 12:39 | XCELERA ---
[id number] [id number]
--- NOTE | 2023-06-26 13:08 | Billing Data ---
Date of Service June 26, 2023 Coding Level of Care Code 67243 IN/OBS DISCH 30 MIN/LESS
--- NOTE | 2023-06-27 07:58 | Electrocardiogram Report ---
Test Reason : Blood Pressure : / mmHG Vent. Rate : 092 BPM Atrial Rate : 092 BPM P-R Int : 132 ms QRS Dur : 090 ms QT Int : 374 ms P-R-T Axes : 069 066 045 degrees QTc Int : 462 ms Normal sinus rhythm with sinus arrhythmia Normal ECG When compared with ECG of 25-JUN-2023 18:17, No significant change was found Confirmed by Rex Braga ([id number]) on 06/27/2023 7:58:18 AM Referred By: REFERRED SELF Confirmed By:Rex Braga
== END 2023-06-26 13:15 | disposition home or self-care (01) | DRG 392 ==
LOC: ED 18:13 → CC 18:35 → 2E 19:17 → SUATTDRO 19:17 → INTOOBSV 19:17

== ENCOUNTER 2025-04-23 18:59 | Inpatient (IN) ==
--- NOTE | 2025-04-23 19:12 | Emergency Department Note ---
Impression & Plan Chest pain, CAD (coronary artery disease) ED Provider Note NAME: ELIZ LORA AGE: 49 SEX: M : 1975 ARRIVES VIA: Walk-In INFORMANT: Patient ED PROVIDER(S): Benton Gavin DO CHIEF COMPLAINT: Chest pain HPI: Patient is a 49-year-old male status post AR with stent placement and CAD who presents to the ER for chest pain under his left breast which feels like a pressure/tightness. Started around 530. Feels like his previous AR. Denies any shortness of breath. No arm or jaw pain. No belly pain. No nausea, vomiting or diarrhea. No dysuria, urgency or frequency. No other exacerbating or remitting factors. ADDITIONAL HISTORY OBTAINED: Per HPI Chronic Medical/Social Conditions Affecting Care: Per HPI PAST MEDICAL HISTORY:See Below PAST SURGICAL HISTORY:See Below FAMILY HISTORY:See Below SOCIAL HISTORY:See Below HOME MEDICATIONS:See Below ALLERGIES:See Below VITALS:See Below PHYSICAL EXAMINATION: GENERAL: Sitting up in bed, alert, well appearing, well nourished, no distress, non-toxic EYE EXAM: normal conjunctiva. OROPHARYNX: mucous membranes are moist NECK: supple, no nuchal rigidity, no adenopathy, non-tender LUNGS: Clear to auscultation. Normal chest wall mechanics HEART: no murmurs, S1 normal and S2 normal ABDOMEN: abdomen soft, non-tender, normo-active bowel sounds, no masses, no rebound or guarding. UPPER EXTREMITIES: upper extremities are grossly normal. Radial pulses are equal bilaterally LOWER EXTREMITIES: No pitting edema. Calves are equal bilaterally NEURO EXAM: Normal sensorium, cranial nerves II-XII grossly intact, normal speech, no gross weakness of arms, no gross weakness of legs. MEDICAL DECISION MAKING: Patient is a 49-year-old male who presents to the ER for the above-stated complaint. IV was established and blood work was obtained. Labs showed no significant leukocytosis or anemia. BMP along with LFTs bilirubin was unremarkable. Troponins were negative x 2. Lipase normal. Patient was given nitroglycerin, nation with morphine and pain improved. He was given a dose of IV Lopressor. Heart rate trended down to the 80s. Patient was updated at bedside with his history and in this feeling like his previous AR his case was discussed with the hospitalist for further evaluation management treatment. Consults/Care Managements Discussions: Per MDM Triage Nursing notes reviewed. Limited review of prior medical records performed Vital Signs: reviewed and remarkable for HTN Differential diagnosis: Cardiac ischemia, aortic dissection, pulmonary embolism, pneumothorax, pneumonia, pericarditis, myocarditis, esophageal rupture, GERD, cholecystitis, pancreatitis, musculoskeletal, as well as other pathologies. ER treatment provided: See below Diagnostics interpreted by me include EKG and cardiac monitoring as listed below: -Cardiac Monitoring: An order was placed for continuous cardiac monitoring. The monitor shows a rate of 95 with sinus rhythm. -ECG: Sinus rhythm rate of 98 Normal axis No PVCs QTc 454 EKG #2 Sinus rhythm rate of 97 Normal axis No PVCs QTc 467 -Laboratory studies:Interpreted by me as stated above in MDM and shown below. Imaging studies: Xrays: As interpreted by me: Portable AP upright 1 view of the chest shows no focal infiltrate CTs show: none Procedures:none Critical Care: None Past Med/Surg History Problem List (Updated 04/23/25 @ 22:45 by Benton Gavin DO) Chest pain (Acute) Hiatal hernia Anemia Acute anterolateral wall AR (Acute) S/P PTCA (percutaneous transluminal coronary angioplasty) S/P drug eluting coronary stent placement CAD (coronary artery disease) (Acute) Admitted to intensive care unit Depression Medical History Abnormal EKG Chest pain Chest pain Social History Smoking Status: Current every day smoker Tobacco Type: E-cigarettes / Vaping Do You Dip or Chew Tobacco: No; Hx Alcohol Use: Yes Alcohol type: beer Hx Substance Use: No Preferred Language: Chinese Communication Ability: Effective Database Analyst Required: No Beliefs That Will Affect Care: None Current Living Situation: Spouse and Family Feels Safe at Home: Yes Assistive Devices: None Allergies Allergies Allergy/AdvReac Type Severity Reaction Status Date / Time pollen extracts AdvReac Mild Watery Eye Verified 04/23/25 20:58 No Known Drug Allergies AdvReac Unknown Verified 04/23/25 20:58 Home Meds Home Medications Medication Instructions Recorded Confirmed multivitamin 2 tab PO DAILY 03/25/21 04/23/25 sertraline 25 mg tablet 50 mg PO DAILY 03/25/21 04/23/25 famotidine 20 mg tablet 20 mg PO DAILY PRN gerd 06/25/23 04/23/25 albuterol sulfate 90 mcg/actuation 1 - 2 puff inhalation Q4 04/23/25 04/23/25 aerosol inhaler Previous Rx's Medication Instructions Recorded metoprolol tartrate 50 mg tablet 50 mg PO BID #60 tabs 03/27/21 atorvastatin 80 mg tablet 80 mg PO QAM #30 tabs 12/09/21 lisinopril 5 mg tablet (Zestril) 5 mg PO QAM #30 tabs 12/09/21 aspirin 81 mg tablet,delayed 81 mg PO QAM #30 tabs 04/21/22 release ferrous sulfate 325 mg (65 mg 325 mg PO DAILY #30 tabs 06/26/23 iron) tablet (Iron (ferrous sulfate)) Results & Data (ED) Vital Signs Vital Signs - 24 hr 04/23/25 19:01 04/23/25 19:12 04/23/25 19:29 Temperature 36.5 C Temperature Source Temporal Artery Scan Pulse Rate 97 H 104 H Pulse Rate [Apical] 98 H Pulse Rate from SpO2 Sensor Pulse Rhythm [Apical] Regular Pulse Strength [Apical] Normal Respiratory Rate 18 17 Respiratory Effort / Characteristics Non-Labored Spontaneous Non-Labored Spontaneous Respiratory Depth Normal Normal Respiratory Pattern Regular Regular Blood Pressure 167/106 H Blood Pressure [Right Arm] 162/115 H Blood Pressure Mean 126 Blood Pressure Mean [Right Arm] 130 Blood Pressure Position Sitting Blood Pressure Position [Right Arm] Lying Pulse Oximetry 96 96 Oxygen Delivery Method Room Air Room Air Sepsis Recent Fever Within 48 Hours No Sepsis New/Unexplained Change in Mental Status N/A Sepsis Action Taken by Nursing No Action Required 04/23/25 19:29 04/23/25 20:12 04/23/25 20:22 Temperature Temperature Source Pulse Rate 96 H 92 H Pulse Rate [Apical] Pulse Rate from SpO2 Sensor 97 H Pulse Rhythm [Apical] Pulse Strength [Apical] Respiratory Rate 16 Respiratory Effort / Characteristics Respiratory Depth Respiratory Pattern Blood Pressure 168/115 H 170/114 H Blood Pressure [Right Arm] Blood Pressure Mean 132 Blood Pressure Mean [Right Arm] Blood Pressure Position Blood Pressure Position [Right Arm] Pulse Oximetry 96 95 Oxygen Delivery Method Room Air Sepsis Recent Fever Within 48 Hours Sepsis New/Unexplained Change in Mental Status Sepsis Action Taken by Nursing 04/23/25 20:42 04/23/25 21:00 Temperature Temperature Source Pulse Rate 82 Pulse Rate [Apical] 74 Pulse Rate from SpO2 Sensor 80 Pulse Rhythm [Apical] Regular Pulse Strength [Apical] Normal Respiratory Rate 23 20 Respiratory Effort / Characteristics Non-Labored Spontaneous Respiratory Depth Normal Respiratory Pattern Regular Blood Pressure 153/105 H Blood Pressure [Right Arm] 147/97 H Blood Pressure Mean 121 Blood Pressure Mean [Right Arm] 113 Blood Pressure Position Blood Pressure Position [Right Arm] Lying Pulse Oximetry 96 98 Oxygen Delivery Method Room Air Sepsis Recent Fever Within 48 Hours Sepsis New/Unexplained Change in Mental Status Sepsis Action Taken by Nursing Laboratory Data 04/23/25 19:15 04/23/25 19:15 Lab Results 04/23/25 Range/Units 19:15 WBC 6.89 (4.8-10.8) K/ul RBC 5.56 (4.70-6.10) M/uL Hgb 15.2 (14.0-18.0) g/dl Hct 46.6 (42.0-52.0) % MCV 83.8 (80.0-100.0) fL MCH 27.3 (25.0-34.0) pg MCHC 32.6 (32.0-36.0) g/dL RDW Std Deviation 47.3 H (36.4-46.3) fL RDW Coeff of Jesus 15.8 H (11.5-14.5) % Plt Count 219 (130-400) K/uL MPV 9.0 L (9.4-12.4) fL Immature Gran % (Auto) 0.3 % Neut % (Auto) 68.4 % Lymph % (Auto) 21.5 % [place] % (Auto) 6.7 % Eos % (Auto) 1.9 % Baso % (Auto) 1.2 % Neut # (Auto) 4.72 (1.40-6.50) K/uL Lymph # (Auto) 1.48 (1.20-3.40) K/uL [place] # (Auto) 0.46 (0.11-0.59) K/uL Eos # (Auto) 0.13 (0.00-0.50) K/uL Baso # (Auto) 0.08 (0.00-0.20) K/uL Immature Gran # (Auto) 0.02 (0.01-0.20) K/uL Sodium 138 (136-145) mmol/L Potassium 3.9 (3.5-5.1) mmol/L Chloride 102 (98-107) mmol/L Carbon Dioxide 27 (21-32) mmol/L Anion Gap 9 (3-11) BUN 13 (6-23) mg/dl Creatinine 0.94 (0.6-1.4) mg/dl Est Cr Clr Drug Dosing 114.0 ml/min eGFR 100.00 BUN/Creatinine Ratio 13.8 (10-20) Glucose 104 H (70-99(Fasting)) mg/dl Calcium 9.5 (8.6-10.3) mg/dl Total Bilirubin 0.5 (0.2-1.0) mg/dl AST 40 H (13-39) U/L ALT 33 (7-52) U/L Alkaline Phosphatase 74 (34-104) U/L Troponin I High Sens 4.2 (0-20) pg/ml Total Protein 7.3 (6.0-8.3) gm/dl Albumin 4.2 (3.4-5.0) gm/dl Globulin 3.1 (2.5-4.0) gm/dl Albumin/Globulin Ratio 1.4 (0.9-2) Lipase 34 (11-82) U/L Administered Medications Discontinued Medications Sodium Chloride (Nss) 1,000 mls @ 999 mls/hr IV .Q1H1M ONE Stop: 04/23/25 20:14 Last Infusion: 04/23/25 22:36 Dose: Infused Documented By: Admin: 04/23/25 19:20 Dose: 999 mls/hr Documented By: HENRI Metoprolol Tartrate (Metoprolol Tartrate 1 Mg/Ml Vial) 5 mg IV NOW STA Stop: 04/23/25 20:05 Last Admin: 04/23/25 20:22 Dose: 5 mg Documented By: MEHREEN Morphine Sulfate (Morphine Sulfate 4 Mg/Ml 1 Ml Carp\Vial) 4 mg IV NOW STA Stop: 04/23/25 20:26 Last Admin: 04/23/25 20:31 Dose: 4 mg Documented By: MEHREEN Nitroglycerin (Nitroglycerin Sl 0.4 Mg/Tab Tab) 0.4 mg SL Q5M PRN PRN Reason: Chest Pain Stop: 05/23/25 20:03 Last Admin: 04/23/25 20:23 Dose: 0.4 mg Documented By: Admin: 04/23/25 20:08 Dose: 0.4 mg Documented By: MEHREEN Nitroglycerin (Nitroglycerin 2% Ointment 30gm Tube) 0.5 inch EXT NOW STA Stop: 04/23/25 21:08 Last Admin: 04/23/25 21:15 Dose: 0.5 inch Documented By: MEHREEN Imaging Data Radiologist's Impression: Chest X-Ray 04/23/25 19:04 Chest radiograph, one view History: Chest pain Comparison: None Findings: Single AP view of the chest performed. No focal consolidation or pleural effusion. No pneumothorax. The cardiomediastinal silhouette is within normal limits. Normal pulmonary vascularity. No evidence for lymphadenopathy. No visualized bony or soft tissue abnormality. Impression: Normal chest radiograph Electronically signed by Monster Jean 04-23-2025 7:44 PM Discharge Plan Visit Data Chief Complaint: Chest Pain Stated Complaint: CHEST PAIN ED Provider: Benton Gavin Discharge Problem: Chest pain, CAD (coronary artery disease) Patient Disposition: Admitted As Inpatient Condition: Fair Discharge Instructions Interventions: ED Discharge Assessment Last Done: 04/23/25 21:55 Discharge Problem: Chest pain Qualifiers: Chest pain type: unspecified Qualified Code(s): R07.9 - Chest pain, unspecified CAD (coronary artery disease) Qualifiers: Coronary Disease-Associated Artery/Lesion type: unspecified vessel or lesion type
[2025-04-23] MEDS: SODIUM CHLORIDE 0.9% 1,000 ML IV ONE (19:20)
[2025-04-23 19:28] LABS: Hematocrit (blood only) 46.6 % (42.0-52.0); Hemoglobin 15.2 g/dl (14.0-18.0); Immature Granulocytes # (auto) 0.02 K/uL (0.01-0.20); Immature Granulocytes % (auto) 0.3 %; Mean Corpuscular Hemoglobin 27.3 pg (25.0-34.0); Mean Corpuscular Volume 83.8 fL (80.0-100.0); Platelet Count 219 K/uL (130-400); RDW Standard Deviation 47.3 fL (36.4-46.3); Red Blood Count 5.56 M/uL (4.70-6.10); White Blood Count 6.89 K/ul (4.8-10.8)
--- NOTE | 2025-04-23 19:44 | XRay Report ---
Chest radiograph, one view History: Chest pain Comparison: None Findings: Single AP view of the chest performed. No focal consolidation or pleural effusion. No pneumothorax. The cardiomediastinal silhouette is within normal limits. Normal pulmonary vascularity. No evidence for lymphadenopathy. No visualized bony or soft tissue abnormality. Impression: Normal chest radiograph Electronically signed by Monster Jean 04-23-2025 7:44 PM
[2025-04-23 19:46] LABS: Alanine Aminotransferase 33.0 U/L (7-52); Albumin Globulin Ratio 1.4 (0.9-2); Alkaline Phosphatase 74.0 U/L (34-104); Anion Gap 9.0 (3-11); Bilirubin,Total 0.5 mg/dl (0.2-1.0); Blood Urea Nitrogen 13.0 mg/dl (6-23); Calcium 9.5 mg/dl (8.6-10.3); Carbon Dioxide 27.0 mmol/L (21-32); Chloride 102.0 mmol/L (98-107); Creatinine Clr Calc Pharmacy 114.0 ml/min; Globulin 3.1 gm/dl (2.5-4.0); Glucose 104.0 mg/dl (70-99(Fasting)); Lipase 34.0 U/L (11-82); Potassium 3.9 mmol/L (3.5-5.1); Sodium 138.0 mmol/L (136-145); Total Protein 7.3 gm/dl (6.0-8.3)
[2025-04-23] MEDS: NITROGLYCERIN SL 0.4 MG/TAB TAB SL PRN (20:08)
[2025-04-23] MEDS: METOPROLOL TARTRATE 1 MG/ML VIAL IV STA (20:22)
[2025-04-23] MEDS: MoRPHine SULFATE 4 MG/ML 1 ML CARP\\VIAL IV STA (20:31)
--- NOTE | 2025-04-23 21:05 | History & Physical Report ---
Date of Service April 23, 2025 Assessment & Plan (1) Chest pain: (2) CAD (coronary artery disease): (3) Hiatal hernia: Plan 49yo male with history of CAD s/p anterolateral NC in 2020 presenting with chest pain. #Chest pain/History of CAD with anterior NC s/p stent to LAD - patient compliant with his medications. EKG with no acute ischemic changes but shows some non- specific ST changes, no dynamic changes present on serial studies. Troponin x 1 within normal range at 4.2, obtained approximately 2 hours after chest pain started. Repeat troponin is pending -Admit to PCU -Trend troponin -Nitro past 1/2 inch to chest -Continue cardiac medications as below -Consider Cardiology consultation pending workup findings #CAD -Continue ASA 81mg po daily -Continue Metoprolol 50mg po BID -Continue Lisinopril 5mg po daily -Continue Atorvastatin 80mg po daily #Hiatal Hernia - possible cause for patient's current discomfort -Protonix 40mg IV daily -Pepcid 20mg IV daily #Cough/Recent URI - scattered wheezing. CXR with no acute issues. Adequate oxygenation on room air -Albuterol PRN #Anxiety -Continue Sertraline 50mg po daily #Daily EtOH use - patient states he only drinks 1-2 beverages per day, feels that he may be downplaying this. No history of withdrawal -PO Ativan per AWSS At Risk protocol -Daily Thiamine and Folic Acid #Ppx - Lovenox History of Present Illness Chief Complaint: chest pain Primary Care Provider: ISA Saavedra Iker Champion is a 49yo male presenting with chest pain. Patient with history of CAD s/p anterior STEMI 03/2021 with stent placement to the LAD. He is compliant with his medications. Patient presented to the ER with persistent chest pain in 06/2023 and had a cardiac catheterization performed which revealed minimal CAD and a patent LAD stent. 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 This evening at 17:30 he developed severe onset of left sided chest pain, severe pressure near cardiac apex. Pain severe 9/10. He went to the [facility] and was given ASA x 4 and had an EKG performed which did not show any acute changes. He was then referred to the hospital. Patient reports some mild diaphoresis and feeling "off". Denies palpitations, nausea, vomiting, lightheadedness. He was sick last week with fever/chills/URI symptoms. Upon arrival to the ER patient still with chest pain 03/12. He was given Nitroglycerine x 2 which improved the pain slightly. Patient has history of hiatal hernia which occasionally causes discomfort. Patient is not overly active. He denies chest pain with climbing stairs or walking up hills but does get some shortness of breath. He was previously in the [employer] and reports that during a training exercise he fell 1250ft and had failure of his parachute to open. In the ER patient is afebrile, hypertensive with blood pressure 162/115 ER Course: NSS x 1L Nitro 0.4mg x 2 Metoprolol 5mg IV Morphine 4mg IV Allergies Allergy/AdvReac Type Severity Reaction Status Date / Time pollen extracts AdvReac Mild Watery Eye Verified 04/23/25 20:58 No Known Drug Allergies AdvReac Unknown Verified 04/23/25 20:58 Home Medications Medication Instructions Recorded Confirmed Type multivitamin 2 tab PO DAILY 03/25/21 04/23/25 History sertraline 25 mg tablet 50 mg PO DAILY 03/25/21 04/23/25 History metoprolol tartrate 50 mg tablet 50 mg PO BID #60 tabs 03/27/21 04/23/25 Rx atorvastatin 80 mg tablet 80 mg PO QAM #30 tabs 12/09/21 04/23/25 Rx lisinopril 5 mg tablet (Zestril) 5 mg PO QAM #30 tabs 12/09/21 04/23/25 Rx aspirin 81 mg tablet,delayed 81 mg PO QAM #30 tabs 04/21/22 04/23/25 Rx release famotidine 20 mg tablet 20 mg PO DAILY PRN gerd 06/25/23 04/23/25 History ferrous sulfate 325 mg (65 mg 325 mg PO DAILY #30 tabs 06/26/23 04/23/25 Rx iron) tablet (Iron (ferrous sulfate)) albuterol sulfate 90 mcg/actuation 1 - 2 puff inhalation Q4 04/23/25 04/23/25 History aerosol inhaler Past Med/Surg History Problem List (Updated 04/23/25 @ 21:59 by Amanda Akins DO) Hiatal hernia Anemia Acute anterolateral wall NC (Acute) S/P PTCA (percutaneous transluminal coronary angioplasty) S/P drug eluting coronary stent placement CAD (coronary artery disease) Admitted to intensive care unit Depression Medical History Abnormal EKG Chest pain Chest pain Social History Smoking Status: Former smoker Tobacco Type: Cigarettes Cigarettes Per Day: 10; Do You Dip or Chew Tobacco: No; Hx Alcohol Use: Yes Alcohol type: hard liquor Hx Substance Use: No Preferred Language: Latvian Communication Ability: Effective Weight Checker Required: No Beliefs That Will Affect Care: None Current Living Situation: Spouse and Family Feels Safe at Home: Yes Assistive Devices: None Review of Systems Review of Systems: All systems reviewed & are unremarkable except as noted in HPI & below Physical Exam Physical Exam: General: patient resting comfortably, NAD, non-toxic in appearance, AA&O x 4 Skin: warm, dry, intact, no rashes or lesions HEENT: NC/AT, PERRL, EOMI, anicteric sclera, conjunctiva without injection, external ear normal to inspection and nontender, nares patent, moist mucus membranes, dentition intact, no oropharyngeal lesions, neck supple, trachea midline, no LAD, no thyromegaly, no JVD Heart: +S1/S2, regular, no m/r/g, no reproducible chest wall pain Lungs: equal air entry bilaterally, scattered wheezing, no rhonchi Abd: +BS, soft, NT/ND, no masses/organomegaly/ascites Ext: warm, 2+ pulses in UE/LE bilaterally, no clubbing/cyanosis or edema Neuro: nonfocal, patient AA&O x 4, speech intact, no facial droop, moving all extremities on command with equal strength 5/5 Results & Data Results & Data Vital Signs (Past 12 Hours) Vital Signs Temp Pulse Pulse Resp BP BP Pulse Ox 04/23/25 20:42 82 23 153/105 H 96 04/23/25 20:22 92 H 170/114 H 04/23/25 20:12 96 H 16 168/115 H 95 04/23/25 19:29 96 04/23/25 19:29 98 H 17 162/115 H 96 04/23/25 19:12 104 H 04/23/25 19:01 36.5 C 97 H 18 167/106 H 96 O2 Del Method 04/23/25 20:42 04/23/25 20:22 04/23/25 20:12 04/23/25 19:29 Room Air 04/23/25 19:29 Room Air 04/23/25 19:12 04/23/25 19:01 Room Air Laboratory Results Laboratory Results WBC 6.89 K/ul (4.8-10.8) 04/23/25 19:15 RBC 5.56 M/uL (4.70-6.10) 04/23/25 19:15 Hgb 15.2 g/dl (14.0-18.0) 04/23/25 19:15 Hct 46.6 % (42.0-52.0) 04/23/25 19:15 MCV 83.8 fL (80.0-100.0) 04/23/25 19:15 MCH 27.3 pg (25.0-34.0) 04/23/25 19:15 MCHC 32.6 g/dL (32.0-36.0) 04/23/25 19:15 RDW Std Deviation 47.3 fL (36.4-46.3) H 04/23/25 19:15 RDW Coeff of Jesus 15.8 % (11.5-14.5) H 04/23/25 19:15 Plt Count 219 K/uL (130-400) 04/23/25 19:15 MPV 9.0 fL (9.4-12.4) L 04/23/25 19:15 Immature Gran % (Auto) 0.3 % 04/23/25 19:15 Neut % (Auto) 68.4 % 04/23/25 19:15 Lymph % (Auto) 21.5 % 04/23/25 19:15 [place] % (Auto) 6.7 % 04/23/25 19:15 Eos % (Auto) 1.9 % 04/23/25 19:15 Baso % (Auto) 1.2 % 04/23/25 19:15 Neut # (Auto) 4.72 K/uL (1.40-6.50) 04/23/25 19:15 Lymph # (Auto) 1.48 K/uL (1.20-3.40) 04/23/25 19:15 [place] # (Auto) 0.46 K/uL (0.11-0.59) 04/23/25 19:15 Eos # (Auto) 0.13 K/uL (0.00-0.50) 04/23/25 19:15 Baso # (Auto) 0.08 K/uL (0.00-0.20) 04/23/25 19:15 Immature Gran # (Auto) 0.02 K/uL (0.01-0.20) 04/23/25 19:15 Sodium 138 mmol/L (136-145) 04/23/25 19:15 Potassium 3.9 mmol/L (3.5-5.1) 04/23/25 19:15 Chloride 102 mmol/L (98-107) 04/23/25 19:15 Carbon Dioxide 27 mmol/L (21-32) 04/23/25 19:15 Anion Gap 9 (3-11) 04/23/25 19:15 BUN 13 mg/dl (6-23) 04/23/25 19:15 Creatinine 0.94 mg/dl (0.6-1.4) 04/23/25 19:15 Est Cr Clr Drug Dosing 114.0 ml/min 04/23/25 19:15 eGFR 100.00 04/23/25 19:15 BUN/Creatinine Ratio 13.8 (10-20) 04/23/25 19:15 Glucose 104 mg/dl (70-99(Fasting)) H 04/23/25 19:15 Calcium 9.5 mg/dl (8.6-10.3) 04/23/25 19:15 Total Bilirubin 0.5 mg/dl (0.2-1.0) 04/23/25 19:15 AST 40 U/L (13-39) H 04/23/25 19:15 ALT 33 U/L (7-52) 04/23/25 19:15 Alkaline Phosphatase 74 U/L (34-104) 04/23/25 19:15 Troponin I High Sens 4.2 pg/ml (0-20) 04/23/25 19:15 Total Protein 7.3 gm/dl (6.0-8.3) 04/23/25 19:15 Albumin 4.2 gm/dl (3.4-5.0) 04/23/25 19:15 Globulin 3.1 gm/dl (2.5-4.0) 04/23/25 19:15 Albumin/Globulin Ratio 1.4 (0.9-2) 04/23/25 19:15 Lipase 34 U/L (11-82) 04/23/25 19:15 Impressions Chest X-Ray 04/23/25 19:04 Chest radiograph, one view History: Chest pain Comparison: None Findings: Single AP view of the chest performed. No focal consolidation or pleural effusion. No pneumothorax. The cardiomediastinal silhouette is within normal limits. Normal pulmonary vascularity. No evidence for lymphadenopathy. No visualized bony or soft tissue abnormality. Impression: Normal chest radiograph Electronically signed by Monster Jean 04-23-2025 7:44 PM ECG Additional Comments: EKG with non-specific ST-changes, no STEMI PVC PG Care Time/CCT Total # of Minutes Spent Total Time Spent with Patient: Total time spent is greater than 50% in coordination of care (as documented) at patient's floor/unit and/or counseling patient: Coding Level of Care Code 63736 INT INP/OBS CARE 3/75MIN Diagnoses Chest pain R07.9 Chest pain type: unspecified CAD (coronary artery disease) I25.10 Hiatal hernia K44.9 (1) Chest pain Chest pain type: unspecified Qualified Code(s): R07.9 - Chest pain, unspecified
[2025-04-23] MEDS: NITROGLYCERIN 2% OINTMENT 30GM TUBE EXT STA (21:15)
[2025-04-23] MEDS ORDERED: LORazepam 1 MG TAB PO PRN (22:22)
[2025-04-23] MEDS ORDERED: MELATONIN 3 MG TAB PO PRN (22:22)
[2025-04-23] MEDS ORDERED: ONDANSETRON INJ 2 MG/ML 2 ML VIAL IV PRN (22:22)
[2025-04-23] MEDS ORDERED: DOCUSATE SODIUM 100 MG CAP PO PRN (22:22)
[2025-04-23 22:24] VITALS: RESP 16
[2025-04-23] MEDS ORDERED: ALBUTEROL HFA 8 GM INHALER INH PRN (22:55)
[2025-04-23] MEDS: FAMOTIDINE 20MG IV PUSH 20 MG/5 ML SYR IV SCH (23:02)
[2025-04-23 23:32] LABS: Magnesium 1.9 mg/dl (1.7-2.4)
[2025-04-24] MEDS: ACETAMINOPHEN 325 MG TAB PO PRN (00:09)
[2025-04-24 06:40] LABS: Hematocrit (blood only) 40.7 % (42.0-52.0); Hemoglobin 13.5 g/dl (14.0-18.0); Mean Corpuscular Hemoglobin 28.2 pg (25.0-34.0); Mean Corpuscular Volume 85.1 fL (80.0-100.0); Platelet Count 171 K/uL (130-400); RDW Standard Deviation 47.8 fL (36.4-46.3); Red Blood Count 4.78 M/uL (4.70-6.10); White Blood Count 5.85 K/ul (4.8-10.8)
[2025-04-24 07:17] LABS: Alanine Aminotransferase 23.0 U/L (7-52); Alkaline Phosphatase 57.0 U/L (34-104); Anion Gap 7.0 (3-11); Bilirubin,Total 0.8 mg/dl (0.2-1.0); Blood Urea Nitrogen 14.0 mg/dl (6-23); Calcium 8.3 mg/dl (8.6-10.3); Carbon Dioxide 26.0 mmol/L (21-32); Chloride 105.0 mmol/L (98-107); Creatinine Clr Calc Pharmacy 102.2 ml/min; Glucose 85.0 mg/dl (70-99(Fasting)); Potassium 3.8 mmol/L (3.5-5.1); Sodium 138.0 mmol/L (136-145); Total Protein 5.9 gm/dl (6.0-8.3)
[2025-04-24] MEDS: ENOXAPARIN INJ 40 MG/0.4 ML SYR SQ SCH (07:46)
[2025-04-24] MEDS: PANTOprazole 40 MG/10 ML SYR IV SCH (07:47)
[2025-04-24] MEDS: ATORVASTATIN 40 MG TAB PO SCH (07:47)
[2025-04-24] MEDS: ASPIRIN 81 MG ECTAB PO SCH (07:48)
[2025-04-24] MEDS: FOLIC ACID 1 MG TAB PO SCH (07:48)
[2025-04-24] MEDS: THIAMINE HCL 100 MG TAB PO SCH (07:49)
[2025-04-24] MEDS: SERTRALINE HCL 50 MG TABLET PO SCH (07:49)
[2025-04-24] MEDS: METOPROLOL TARTRATE 50 MG TAB PO SCH (07:49)
--- NOTE | 2025-04-24 10:17 | Electrocardiogram Report ---
Test Reason : Blood Pressure : */* mmHG Vent. Rate : 98 BPM Atrial Rate : 98 BPM P-R Int : 130 ms QRS Dur : 88 ms QT Int : 356 ms P-R-T Axes : 36 59 29 degrees QTcB Int : 454 ms Sinus rhythm with marked sinus arrhythmia Nonspecific ST abnormality Abnormal ECG When compared with ECG of 25-Jun-2023 19:56, No significant change was found Confirmed by Kwan Davidson ([id number]) on 04/24/2025 10:17:28 AM Referred By: REFERRED SELF Confirmed By: Kwan Davidson
--- NOTE | 2025-04-24 10:18 | Electrocardiogram Report ---
Test Reason : Blood Pressure : */* mmHG Vent. Rate : 97 BPM Atrial Rate : 97 BPM P-R Int : 142 ms QRS Dur : 82 ms QT Int : 368 ms P-R-T Axes : 59 50 17 degrees QTcB Int : 467 ms Poor data quality, interpretation may be adversely affected Normal sinus rhythm Nonspecific ST abnormality Abnormal ECG When compared with ECG of 23-Apr-2025 19:08, (unconfirmed) No significant change was found Confirmed by Kwan Davidson ([id number]) on 04/24/2025 10:18:03 AM Referred By: REFERRED SELF Confirmed By: Kwan Davidson
--- NOTE | 2025-04-24 10:19 | Electrocardiogram Report ---
Test Reason : Blood Pressure : */* mmHG Vent. Rate : 90 BPM Atrial Rate : 90 BPM P-R Int : 140 ms QRS Dur : 84 ms QT Int : 372 ms P-R-T Axes : 48 57 31 degrees QTcB Int : 455 ms Sinus rhythm with sinus arrhythmia with occasional Premature ventricular complexes Cannot rule out Anterior infarct , age undetermined Abnormal ECG When compared with ECG of 23-Apr-2025 19:20, (unconfirmed) Premature ventricular complexes are now Present Confirmed by Kwan Davidson ([id number]) on 04/24/2025 10:18:44 AM Referred By: REFERRED SELF Confirmed By: Kwan Davidson
--- NOTE | 2025-04-24 10:34 | Electrocardiogram Report ---
Test Reason : Blood Pressure : */* mmHG Vent. Rate : 72 BPM Atrial Rate : 72 BPM P-R Int : 130 ms QRS Dur : 84 ms QT Int : 402 ms P-R-T Axes : 5 56 39 degrees QTcB Int : 440 ms Normal sinus rhythm Normal ECG When compared with ECG of 23-Apr-2025 20:17, (unconfirmed) Premature ventricular complexes are no longer Present Confirmed by Kwan Davidson ([id number]) on 04/24/2025 10:33:58 AM Referred By: REFERRED SELF Confirmed By: Kwan Davidson
--- NOTE | 2025-04-24 10:55 | Hospitalist Progress Note ---
"Date of Service April 24, 2025 Assessment & Plan (1) Chest pain: (2) CAD (coronary artery disease): (3) Hiatal hernia: Plan 49yo male with history of CAD s/p anterolateral UT in 2020 who presented with acute onset of left-sided chest pain and severe pressure near cardiac apex. He was sick the week prior to admission with fever/chills/URI symptoms. He has a history of hiatal hernia which occasionally causes discomfort. Cardiac workup on admission was unremarkable. He was admitted for further workup of his chest pain. #Chest pain | History of CAD with anterior UT s/p stent to LAD - patient compliant with his medications. EKG with no acute ischemic changes but shows some non-specific ST changes, no dynamic changes present on serial studies. Cardiac catheterization in June 2023 revealed minimal nonobstructive CAD with widely patent mid LAD stent, normal intracardiac filling pressure, LVEF 60% with no apparent wall motion abnormalities. - Troponin x 3 within normal range. - CXR on admission unremarkable - Echocardiogram ordered, pending - D-dimer ordered, pending - if elevated, obtain chest CTA to evaluate for PE - ESR ordered, pending. Recent URI symptoms, fever/chills - Nitro past 1/2 inch to chest - Continue cardiac medications as below - Consider Cardiology consultation pending workup findings #CAD - Continue ASA 81mg po daily, Metoprolol 50mg po BID, Lisinopril 5mg po daily, Atorvastatin 80mg po daily #Hiatal Hernia - possible cause for patient's current discomfort? - Protonix 40mg IV daily - Pepcid 20mg IV daily #Cough | Recent URI - scattered wheezing. CXR with no acute issues. Adequate oxygenation on room air - Albuterol PRN #Daily EtOH use - patient states he only drinks 1-2 beverages per day, fe els that he may be downplaying this. No history of withdrawal - PO Ativan per [facility] At Risk protocol - Daily Thiamine and Folic Acid #Anxiety - Continue Sertraline 50mg po daily VTE PPx: Lovenox Dispo: Continued inpatient stay while completing further workup. Ordered echocardiogram, D dimer, ESR Admission and Anticipated Discharge Date Admission Date: April 23, 2025 Physical Exam Physical Exam: General: No acute distress, nondiaphoretic, well-developed, well-nourished. Skin: Warm, dry. No rashes or peripheral edema noted. Cardiac: Regular rate and rhythm without murmurs gallops or rubs. No reproducible chest wall pain. Pulm: Scattered wheezing noted throughout. No rhonchi or rales noted. Normal respiratory effort. 93% on room air. Abdominal: Soft, nontender, nondistended. Bowel sounds present. Neuro: A&O x3. No focal neurological deficits. Results & Data Results & Data Vital Signs (Past 12 Hours) Vital Signs Temp Pulse Resp BP BP Pulse Ox O2 Del Method 04/24/25 07:42 97.7 F 70 16 152/94 H 93 Room Air 04/24/25 02:44 97.9 F 79 16 156/93 H 93 Room Air 04/23/25 23:57 97.9 F 76 16 148/101 H 95 Room Air Laboratory Results Reviewed CBC with differential Reviewed CMP, chemistries Diagnostic Findings Reviewed CXR Reviewed EKGs PG Care Time/CCT Total # of Minutes Spent Total Time Spent with Patient: Total time spent is greater than 50% in coordination of care (as documented) at patient's floor/unit and/or counseling patient: Coding Level of Care Code 86794 SUB INP/OBS CARE 3/50MIN Diagnoses Chest pain R07.9 Chest pain type: unspecified CAD (coronary artery disease) I25.10 Coronary Disease-Associated Artery/Lesion type: unspecified vessel or lesion type Hiatal hernia K44.9 (1) Chest pain Chest pain type: unspecified Qualified Code(s): R07.9 - Chest pain, unspecified (2) CAD (coronary artery disease) Coronary Disease-Associated Artery/Lesion type: unspecified vessel or lesion type"
[2025-04-24 11:24] VITALS: TEMP 97.9; O2SAT 96
[2025-04-24 13:21] VITALS: BP 156/93; PULSE 68
--- NOTE | 2025-04-24 13:36 | XCELERA ---
[id number]
--- NOTE | 2025-04-24 14:28 | Discharge Summary ---
Discharge Summary Date of Service April 24, 2025 Principal Dx & Hospital Course #1 = Principal Diagnosis (1) Chest pain: (2) CAD (coronary artery disease): (3) Hiatal hernia: Plan 49yo male with history of CAD s/p anterolateral AK in 2020 who presented with acute onset of left-sided chest pain and severe pressure near cardiac apex. He was sick the week prior to admission with fever/chills/URI symptoms. He has a history of hiatal hernia which occasionally causes discomfort. Cardiac workup on admission was unremarkable. He was admitted for further workup of his chest pain. #Chest pain | History of CAD with anterior AK s/p stent to LAD - patient compliant with his medications. EKG with no acute ischemic changes but shows some non-specific ST changes, no dynamic changes present on serial studies. Cardiac catheterization in June 2023 revealed minimal nonobstructive CAD with widely patent mid LAD stent, normal intracardiac filling pressure, LVEF 60% with no apparent wall motion abnormalities. - Troponin x 3 within normal range - CXR on admission unremarkable - Echocardiogram with no significant change compared with study from June 2023. Notes normal LV systolic function, LVEF 55-60%, no regional wall motion abnormalities, borderline concentric left ventricular hypertrophy, no significant valvular pathology - D-dimer WNL at 230 - ESR WNL at 7 - Continue cardiac medications as below - 0/10 chest pain on day of discharge #CAD - Continue ASA 81mg po daily, Metoprolol 50mg po BID, Lisinopril 5mg po daily, Atorvastatin 80mg po daily #Hiatal Hernia - suspect this was cause for patient's chest pain - Famotidine 20 mg daily - Started on Protonix 40 mg daily #Cough | Recent URI - scattered wheezing. CXR with no acute issues. Adequate oxygenation on room air - Albuterol PRN #Daily EtOH use - patient states he only drinks 1-2 beverages per day, feels that he may be downplaying this. No history of withdrawal and no withdrawal symptoms during hospitalization #Anxiety - Continue Sertraline 50mg po daily VTE PPx: Lovenox Dispo: Discharged home 04/24 Notes For Next Care Provider Cardiac workup unremarkable. Suspect chest pain was secondary to hiatal hernia, which has intermittently caused discomfort in the past. Medication Changes From Visit Started on Protonix 40 mg daily Continue all other home medications Admission HPI Per Admitting Provider Iker Champion is a 49yo male presenting with chest pain. Patient with history of CAD s/p anterior STEMI 03/2021 with stent placement to the LAD. He is compliant with his medications. Patient presented to the ER with persistent chest pain in 06/2023 and had a cardiac catheterization performed which revealed minimal CAD and a patent LAD stent. 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 This evening at 17:30 he developed severe onset of left sided chest pain, severe pressure near cardiac apex. Pain severe 04/12. He went to the [facility] and was given ASA x 4 and had an EKG performed which did not show any acute changes. He was then referred to the hospital. Patient reports some mild diaphoresis and feeling "off". Denies palpitations, nausea, vomiting, lightheadedness. He was sick last week with fever/chills/URI symptoms. Upon arrival to the ER patient still with chest pain 03/12. He was given Nitroglycerine x 2 which improved the pain slightly. Patient has history of hiatal hernia which occasionally causes discomfort. Patient is not overly active. He denies chest pain with climbing stairs or walking up hills but does get some shortness of breath. He was previously in the [employer] and reports that during a training exercise he fell 1250ft and had failure of his parachute to open. In the ER patient is afebrile, hypertensive with blood pressure 162/115 ER Course: NSS x 1L Nitro 0.4mg x 2 Metoprolol 5mg IV Morphine 4mg IV Discharge Exam General: No acute distress, nondiaphoretic, well-developed, well-nourished. Skin: Warm, dry. No rashes or peripheral edema noted. Cardiac: Regular rate and rhythm without murmurs gallops or rubs. No reproducible chest wall pain. Pulm: Scattered wheezing noted throughout. No rhonchi or rales noted. Normal respiratory effort. 96% on room air. Abdominal: Soft, nontender, nondistended. Bowel sounds present. Neuro: A&O x3. No focal neurological deficits. Discharge Plan Discharge Items Patient Disposition: Home - Self-Care Reason For Visit: CHEST PAIN Discharge Diagnosis: Chest pain, resolved Condition on Discharge: Fair Activity: Resume your previous activity Non-emergency contact: Primary Care Provider Call non-emergency contact if: you have any medication questions and your symptoms worsen Follow-up/Referrals: Diane De Jesus CRNP [Primary Care Provider] - ([facility]pt of [place] schedules follow up ) Diet: Heart Healthy Addtl Attending Provider Instructions: Iker, You were admitted to the hospital with chest pain. Your cardiac workup was overall unremarkable. This included routine laboratory studies, multiple troponin (heart enzyme) tests, inflammatory markers, EKGs, continuous heart monitoring, and chest x-ray. You also had an echocardiogram completed, however the report for this has not been finalized. As we discussed, I will contact you via phone call if the report shows any significant acute abnormalities. If you do not receive a phone call from me by tomorrow, 04/25, you can assume the echocardiogram report was unremarkable and your PCP can further discuss the details of it with you at your follow-up appointment. Given your unremarkable cardiac workup, I suspect the cause of your chest pain was due to your hiatal hernia. I have sent in a prescription for Protonix 40 mg daily to your [facility] pharmacy in [place]. Continue taking your famotidine as prescribed. Continue your other home medications as prescribed. Please follow-up with your PCP in 1-2 weeks. Please return to the hospital if you experience any of the following: Return of chest pain, difficulty breathing, lightheadedness/dizziness, passing out, confusion, or any other symptoms concerning for you. It was a pleasure taking care of you while you were in the hospital! Pending Studies at Discharge: Yes Studies:: Echocardiogram Stand-Alone Forms: My [facility], Smoking Cessation Medications and DC Order Prescriptions: New pantoprazole [Protonix] 40 mg tablet,delayed release (DR/EC) 40 mg PO DAILY Qty: 30 0RF Continued atorvastatin 80 mg tablet 80 mg PO QAM Qty: 30 6RF lisinopril [Zestril] 5 mg tablet 5 mg PO QAM Qty: 30 6RF aspirin 81 mg tablet,delayed release (DR/EC) 81 mg PO QAM Qty: 30 0RF sertraline 25 mg Tablet 50 mg PO DAILY multivitamin Tablet,Chewable 2 tab PO DAILY metoprolol tartrate 50 mg Tablet 50 mg PO BID Qty: 60 6RF famotidine 20 mg tablet 20 mg PO DAILY PRN (Reason: gerd) ferrous sulfate [Iron (ferrous sulfate)] 325 mg (65 mg iron) tablet 325 mg PO DAILY Qty: 30 0RF albuterol sulfate 90 mcg/actuation HFA aerosol inhaler 1 - 2 puff INHALATION Q4 Discharge Orders: Discharge Order (Routine); Ordered 04/24/25 Ordered By: Shelley Hwang Admission Data Admit Date/Time: 04/23/25 21:13 Attending Provider: Gema Alamo Admit Provider: Amanda Akins Primary Care Provider: Diane De Jesus Other Providers: Amanda Akins; [facility] Other Interventions: Discharge Summary Assessment (RN) Last Done: 04/24/25 13:19 Hospital Stay Data Consultations 04/23/25 20:38 ED Decision to Admit Stat Diagnostic Imagining Performed Chest X-Ray 04/23/25 19:04 Chest radiograph, one view History: Chest pain Comparison: None Findings: Single AP view of the chest performed. No focal consolidation or pleural effusion. No pneumothorax. The cardiomediastinal silhouette is within normal limits. Normal pulmonary vascularity. No evidence for lymphadenopathy. No visualized bony or soft tissue abnormality. Impression: Normal chest radiograph Electronically signed by Monster Jean 04-23-2025 7:44 PM Pending Results Patient Have Any Pending Studies at Discharge: Yes Discharge Instructions Given to Patient (Per Discharging Provider) Iker, You were admitted to the hospital with chest pain. Your cardiac workup was overall unremarkable. This included routine laboratory studies, multiple troponin (heart enzyme) tests, inflammatory markers, EKGs, continuous heart monitoring, and chest x-ray. You also had an echocardiogram completed, however the report for this has not been finalized. As we discussed, I will contact you via phone call if the report shows any significant acute abnormalities. If you do not receive a phone call from me by tomorrow, 04/25, you can assume the echocardiogram report was unremarkable and your PCP can further discuss the details of it with you at your follow-up appo intment. Given your unremarkable cardiac workup, I suspect the cause of your chest pain was due to your hiatal hernia. I have sent in a prescription for Protonix 40 mg daily to your [facility] pharmacy in [facility]. Continue taking your famotidine as prescribed. Continue your other home medications as prescribed. Please follow-up with your PCP in 1-2 weeks. Please return to the hospital if you experience any of the following: Return of chest pain, difficulty breathing, lightheadedness/dizziness, passing out, confusion, or any other symptoms concerning for you. It was a pleasure taking care of you while you were in the hospital! Supervising Physician Co-Signing Physician Notes PA Supervision Note: I did not personally see or examine the patient today, but I verified all liriano points of KIM Hwang's assessment and plan with the following exceptions/additions: None Total Time Total Time Spent Total Time Spent (In Minutes): Greater than 30 minutes spent completing this discharge process including direct patient care, medication reconciliation, documentation, review of labs and images, and coordination of care. Coding Level of Care Code 99774 INP/OBS DISCH >30 MIN Diagnoses Chest pain R07.9 Chest pain type: unspecified CAD (coronary artery disease) I25.10 Coronary Disease-Associated Artery/Lesion type: unspecified vessel or lesion type Hiatal hernia K44.9
== END 2025-04-24 14:10 | disposition home or self-care (01) | DRG 313 ==
LOC: ED 18:59 → SUATTDRO 21:13 → 2S 21:13